=== PATIENT | male | born 1950 | race Caucasian/White ===

== ENCOUNTER 2019-11-02 09:52 | Outpatient (CLI) | payer MEDICARE, SELFPAY ==
[2019-11-02 10:30] LABS: Basophils Absolute Auto 0.1 K/mm3 (0.0-0.1); Basophils Percent Auto 0.7 % (0.2-1.2); Eosinophils Absolute Auto 0.1 K/mm3 (0-0.3); Eosinophils Percent Auto 1.2 % (0-4.4); Hematocrit 37.8 % (42.0-52.0); Hemoglobin 13.4 g/dL (14.0-18.0); Immature Granulocyte Absolute 0.02 K/mm3 (0.00-0.031); Immature Granulocyte Percent A 0.3 % (0-0.5); Lymphocytes Absolute Auto 1.08 K/mm3 (0.9-3.2); Lymphocytes Percent Auto 14.7 % (18.3-44.2); Mean Corpuscular HGB Conc 35.4 g/dl (32-36); Mean Corpuscular Hemoglobin 33.1 pg (26-34); Mean Corpuscular Volume 93.3 fl (80-100); Mean Platelet Volume 10.2 fl (7.4-10.4); Monocytes Absolute Auto 0.7 K/mm3 (0.1-0.6); Monocytes Percent Auto 9.4 % (2.6-8.5); Neutrophils Absolute Auto 5.4 K/mm3 (1.3-6.7); Neutrophils Percent Auto 73.7 % (45.5-73.1); Platelet Count Result 184 k/mm3 (150-375); Red Blood Count 4.05 M/mm3 (4.6-6.20); Red Cell Distribution Width 14.5 % (11.5-14.5); White Blood Count 7.3 K/mm3 (4.5-10.0)
[2019-11-02 10:43] LABS: Alanine Aminotransferase 17 U/L (4-50); Albumin Level 4.3 g/dL (3.5-5.1); Alkaline Phosphatase 56 U/L (38-126); Aspartate Amino Transferase 24 U/L (17-59); Bilirubin,Total 0.7 mg/dL (0.2-1.3); Blood Urea Nitrogen 29 mg/dL (9-20); Calcium 9.1 mg/dL (8.4-10.2); Carbon Dioxide 34 mmol/L (22-30); Chloride 95 mmol/L (98-107); Cholesterol 120 mg/dL (0-200); Estimated Glomerular Filt Rate 46; Glucose 103 mg/dL (75-110); HDL Direct 56 mg/dL; Potassium 3.3 mmol/L (3.4-5.0); Sodium 138 mmol/L (137-145); Triglycerides 89 mg/dL (<150)
[2019-11-02 10:54] LABS: LDL Cholesterol Direct 52 mg/dL
[2019-11-02 11:12] LABS: Prostate Specific Antigen 1.3 ng/mL (< OR = 4.0)
== END 2019-11-02 09:53 | disposition home or self-care (01) ==
PROVIDERS: PCP Internal Medicine; Visit Provider Internal Medicine
DX: E78.2 Mixed hyperlipidemia (principal); I50.9 Heart failure, unspecified; Z79.899 Other long term (current) drug therapy; Z12.5 Encounter for screening for malignant neoplasm of prostate
CPT/HCPCS: 36415; 80053; 80061; 84153; 84443; 85025; G0103

== ENCOUNTER 2020-03-04 01:58 | Outpatient (CLI) | payer MEDICARE, SELFPAY ==
[2020-03-04 18:09] LABS: SARS-CoV-2 RNA PCR Negative
== END 2020-03-04 01:59 | disposition home or self-care (01) ==
LOC: ANHCOVIDDT 01:59
PROVIDERS: PCP Internal Medicine; Visit Provider Internal Medicine Gastroenterology
DX: Z01.818 Encounter for other preprocedural examination (principal); Z11.59 Encounter for screening for other viral diseases
CPT/HCPCS: 87635; C9803; U0003

== ENCOUNTER 2020-03-06 03:07 | Day surgery (SDC) | payer MEDICARE, SELFPAY ==
[2020-02-28 13:50] VITALS: BMI 41.7
[2020-03-06 10:45] VITALS: BP 144/89; PULSE 78; RESP 20; TEMP 36.3; O2SAT 97; BMI 41.0
[2020-03-06] MEDS: LACTATED RINGERS 1,000 ML 150 ML IV CONT (10:55)
[2020-03-06] MEDS: GENTAMICIN 80MG/SOD CHL 50 ML 80 MG/50 ML BAG 100 MG IVPB (10:56)
[2020-03-06] MEDS: AMPICILLIN 2 GM/NS 100 ML 2 GM/100 ML BAG IVPB (11:25)
--- NOTE | 2020-03-06 11:42 | PM.IMHP ---
H&P: HPI History of Present Illness Chief complaint: fecal abnormality, positive cologuard Narrative: This very pleasant gentleman is seen in consultation request of the primary physician. Reason for visit colonoscopy. Impression: Positive stool base DNA testing. Recommendation: Colonoscopy. History: This very pleasant gentleman is negative GI review systems. He is here for colonoscopy. He has a positive stool DNA test. Physical examination: General: very pleasant patient in no acute distress. HEENT: Head was normocephalic sclerae is clear mouth without masses neck was supple. Heart: Rate rhythm regular without S3 or S4. Lungs: CTA. Abdomen: Soft with no guarding or rigidity. Bowel sounds were active. Neurologic: Cranial nerves 2 through 12 intact. No focal defects. No clonus. Musculoskeletal system: Revealed no joint tenderness or swelling no muscle atrophy. Extremities: Reveal no significant edema. Skin: Warm and dry with normal turgor. Mental status: intact. Patient is alert and oriented. Review of Systems Review of Systems: All systems reviewed & are unremarkable except as noted in HPI and below PMFSH Past Medical History Medical History (Updated 03/06/20 @ 11:41 by Jeremias Moreland DO) Benign essential hypertension Body mass index (BMI) 45.0-49.9, adult CHF (congestive heart failure) CKD (chronic kidney disease) Diastolic dysfunction Gout Hyperlipidemia Hypothyroidism (acquired) Lymphedema Mild cognitive disorder Obesity YESY on CPAP Vitamin B12 deficiency Vitamin D deficiency Surgical History Surgical History (Updated 03/06/20 @ 11:42 by Jeremias Moreland DO) H/O aortic valve replacement H/O total hip arthroplasty History of tonsillectomy and adenoidectomy Social History Social History Smoking status: Former smoker Second hand tobacco smoke exposure: No Alcohol intake: current Meds Home Medications and Allergies Home Medications Medication Instructions Recorded Confirmed Type amlodipine 5 mg tablet 5 mg PO DAILY 06/30/19 02/28/20 History aspirin 81 mg tablet,delayed 81 mg PO DAILY 06/30/19 02/28/20 History release carvedilol 25 mg tablet 25 mg PO Q12H 06/30/19 02/28/20 History cyanocobalamin (vitamin B-12) 1,000 mcg SUB-Q .every two weeks 06/30/19 02/28/20 History 1,000 mcg/mL injection solution ml ergocalciferol (vitamin D2) 62.5 2,500 unit PO DAILY 06/30/19 02/28/20 History mcg (2,500 unit) capsule hydralazine 100 mg tablet 100 mg PO TID 06/30/19 02/28/20 History lisinopril 40 mg tablet 40 mg PO DAILY 06/30/19 02/28/20 History omega-3 fatty acids 1,000 mg 1,000 mg PO BID 06/30/19 02/28/20 History capsule potassium chloride 20 mEq 20 meq PO BID #180 tablet 08/09/19 02/28/20 Rx tablet,extended release(part/cryst) rosuvastatin 5 mg tablet 5 mg PO DAILY #90 tablet 08/09/19 02/28/20 Rx apixaban 5 mg tablet 5 mg PO BID #60 tablet 12/06/19 02/28/20 Rx metolazone 2.5 mg tablet 2.5 mg PO DAILY #30 tablet 01/11/20 02/28/20 Rx colchicine 0.6 mg capsule 0.6 mg PO .COMPLEX PRN #90 cap 01/13/20 02/28/20 Rx furosemide [Lasix] 80 mg PO PRN 02/28/20 02/28/20 History donepezil 10 mg BYMOUTH DAILY 03/06/20 03/06/20 History levothyroxine 100 mcg tablet 100 mcg PO DAILY #90 tablet 03/06/20 03/06/20 Rx Allergies Allergy/AdvReac Type Severity Reaction Status Date / Time No Known Allergies Allergy Verified 03/06/20 10:40 Vital Signs Vital Signs - 24 hr 03/06/20 10:45 Temperature 36.3 C L Pulse Rate 78 Respiratory Rate 20 Blood Pressure 144/89 H Pulse Oximetry 97
--- NOTE | 2020-03-06 11:54 | WPDANESEPPF ---
Anes - Initial Pre Proc Eval Procedure: Operation Date: 03/06/20 12:00 Proposed Procedures p Colonoscopy - Jeremias Moreland DO Date/Time: 03/06/20 11:54 Surgeon: Jeremias Moreland DO Pre Op Diagnosis: fecal abnormality, positive cologuard Patient Data Age: 69 Gender: M Height: 5 ft 10 in Weight: 129.6 kg Last Vital Signs Temp 97.3 F L 03/06/20 10:45 Pulse 78 03/06/20 10:45 Resp 20 03/06/20 10:45 BP 144/89 H 03/06/20 10:45 Pulse Ox 97 03/06/20 10:45 Allergies Allergy/AdvReac Type Severity Reaction Status Date / Time No Known Allergies Allergy Verified 03/06/20 10:40 Home Medications Medication Instructions Recorded Confirmed Type amlodipine 5 mg tablet 5 mg PO DAILY 06/30/19 02/28/20 History aspirin 81 mg tablet,delayed 81 mg PO DAILY 06/30/19 02/28/20 History release carvedilol 25 mg tablet 25 mg PO Q12H 06/30/19 02/28/20 History cyanocobalamin (vitamin B-12) 1,000 mcg SUB-Q .every two weeks 06/30/19 02/28/20 History 1,000 mcg/mL injection solution ml ergocalciferol (vitamin D2) 62.5 2,500 unit PO DAILY 06/30/19 02/28/20 History mcg (2,500 unit) capsule hydralazine 100 mg tablet 100 mg PO TID 06/30/19 02/28/20 History lisinopril 40 mg tablet 40 mg PO DAILY 06/30/19 02/28/20 History omega-3 fatty acids 1,000 mg 1,000 mg PO BID 06/30/19 02/28/20 History capsule potassium chloride 20 mEq 20 meq PO BID #180 tablet 08/09/19 02/28/20 Rx tablet,extended release(part/cryst) rosuvastatin 5 mg tablet 5 mg PO DAILY #90 tablet 08/09/19 02/28/20 Rx apixaban 5 mg tablet 5 mg PO BID #60 tablet 12/06/19 02/28/20 Rx metolazone 2.5 mg tablet 2.5 mg PO DAILY #30 tablet 01/11/20 02/28/20 Rx colchicine 0.6 mg capsule 0.6 mg PO .COMPLEX PRN #90 cap 01/13/20 02/28/20 Rx furosemide [Lasix] 80 mg PO PRN 02/28/20 02/28/20 History donepezil 10 mg BYMOUTH DAILY 03/06/20 03/06/20 History levothyroxine 100 mcg tablet 100 mcg PO DAILY #90 tablet 03/06/20 03/06/20 Rx Patient hx anesthesia problems: none Family hx anesthesia problems: none [facility] Past Medical History Medical History (Updated 03/06/20 @ 11:41 by Jeremias Moreland DO) Benign essential hypertension Body mass index (BMI) 45.0-49.9, adult CHF (congestive heart failure) CKD (chronic kidney disease) Diastolic dysfunction Gout Hyperlipidemia Hypothyroidism (acquired) Lymphedema Mild cognitive disorder Obesity YESY on CPAP Vitamin B12 deficiency Vitamin D deficiency Surgical History Surgical History (Updated 03/06/20 @ 11:42 by Jeremias Moreland DO) H/O aortic valve replacement H/O total hip arthroplasty History of tonsillectomy and adenoidectomy Social History Social History Smoking status: Former smoker Second hand tobacco smoke exposure: No Alcohol intake: current Anes - Eval Final PreProcedure Day of Procedure 03/06/20 11:54 Patient weight: morbidly obese Heart: regular rate and rhythm Lungs: clear to auscultation Airway: Mallampati scale class III Neurological: alert and oriented Last oral intake: >/= 8 hours ASA classification: IV Emergent: no Anesthetic plan: proceed Anesthesia type and monitoring: general GIVS and standard monitoring Informed Consent: The patient's anesthetic plan and its attendant risks and benefits were discussed with the patient/family/POA. Questions were solicited and answers provided to the satisfaction of the patient/family/POA.
[2020-03-06 13:13] VITALS: BP 116/73; PULSE 89; RESP 20; O2SAT 97
[2020-03-06 13:23] VITALS: BP 114/71; PULSE 103; RESP 20; O2SAT 97
[2020-03-06 13:33] VITALS: BP 123/81; PULSE 75; RESP 20; O2SAT 97
[2020-03-06 13:43] VITALS: BP 127/77; PULSE 75; RESP 20; O2SAT 97
== END 2020-03-06 13:50 | disposition home or self-care (01) ==
PROVIDERS: PCP Internal Medicine; Visit Provider Internal Medicine Gastroenterology
PROC: 0DJD8ZZ Inspection of Lower Intestinal Tract, Via Natural or Artificial Opening Endoscopic (ICD-10-PCS; CPT 45378; principal; 2020-03-06 12:00)
DX: Z12.11 Encounter for screening for malignant neoplasm of colon (principal); R19.5 Other fecal abnormalities; D12.3 Benign neoplasm of transverse colon; K57.30 Diverticulosis of large intestine without perforation or abscess without bleeding; K64.8 Other hemorrhoids; E78.5 Hyperlipidemia, unspecified; I13.0 Hypertensive heart and chronic kidney disease with heart failure and stage 1 through stage 4 chronic kidney disease, or unspecified chronic kidney disease; N18.9 Chronic kidney disease, unspecified; I50.30 Unspecified diastolic (congestive) heart failure; G47.33 Obstructive sleep apnea (adult) (pediatric); E03.9 Hypothyroidism, unspecified; M10.9 Gout, unspecified; E55.9 Vitamin D deficiency, unspecified; E53.8 Deficiency of other specified B group vitamins; E66.01 Morbid (severe) obesity due to excess calories; Z68.41 Body mass index [BMI] 40.0-44.9, adult; Z95.4 Presence of other heart-valve replacement; Z87.891 Personal history of nicotine dependence; Z79.82 Long term (current) use of aspirin; Z79.01 Long term (current) use of anticoagulants
CPT/HCPCS: 45385; 88305; J0290; J1580; J2704; J7120

== ENCOUNTER 2020-03-24 09:03 | Outpatient (CLI) | payer MEDICARE, SELFPAY ==
[2020-03-24 09:22] LABS: Basophils Absolute Auto 0.1 K/mm3 (0.0-0.1); Basophils Percent Auto 0.7 % (0.2-1.2); Eosinophils Absolute Auto 0.1 K/mm3 (0-0.3); Eosinophils Percent Auto 1.6 % (0-4.4); Hematocrit 39.8 % (42.0-52.0); Hemoglobin 13.8 g/dL (14.0-18.0); Immature Granulocyte Absolute 0.03 K/mm3 (0.00-0.031); Immature Granulocyte Percent A 0.4 % (0-0.5); Lymphocytes Absolute Auto 0.91 K/mm3 (0.9-3.2); Lymphocytes Percent Auto 11.9 % (18.3-44.2); Mean Corpuscular HGB Conc 34.7 g/dl (32-36); Mean Corpuscular Hemoglobin 33.7 pg (26-34); Mean Corpuscular Volume 97.1 fl (80-100); Mean Platelet Volume 9.9 fl (7.4-10.4); Monocytes Absolute Auto 0.7 K/mm3 (0.1-0.6); Monocytes Percent Auto 9.3 % (2.6-8.5); Neutrophils Absolute Auto 5.8 K/mm3 (1.3-6.7); Neutrophils Percent Auto 76.1 % (45.5-73.1); Platelet Count Result 155 k/mm3 (150-375); Red Cell Distribution Width 14.1 % (11.5-14.5); White Blood Count 7.6 K/mm3 (4.5-10.0)
[2020-03-24 09:33] LABS: Hemoglobin A1C 4.8 % (<5.7)
[2020-03-24 09:37] LABS: Alanine Aminotransferase 17 U/L (4-50); Albumin Level 4.3 g/dL (3.5-5.1); Alkaline Phosphatase 55 U/L (38-126); Anion Gap 13.1 mmol/L (7-16); Aspartate Amino Transferase 22 U/L (17-59); Bilirubin,Total 0.8 mg/dL (0.2-1.3); Blood Urea Nitrogen 13 mg/dL (9-20); Carbon Dioxide 27 mmol/L (22-30); Chloride 103 mmol/L (98-107); Cholesterol 119 mg/dL (0-200); Estimated Glomerular Filt Rate > 60; Glucose 109 mg/dL (75-110); HDL Direct 60 mg/dL; Potassium 4.1 mmol/L (3.4-5.0); Sodium 139 mmol/L (137-145); Triglycerides 64 mg/dL (<150)
[2020-03-24 09:48] LABS: LDL Cholesterol Direct 48 mg/dL
== END 2020-03-24 09:04 | disposition home or self-care (01) ==
PROVIDERS: PCP Internal Medicine; Visit Provider Internal Medicine
DX: E78.2 Mixed hyperlipidemia (principal); Z79.899 Other long term (current) drug therapy; I10 Essential (primary) hypertension
CPT/HCPCS: 36415; 80048; 80061; 80076; 83036; 85025

== ENCOUNTER 2020-07-25 10:42 | Outpatient (CLI) | payer MEDICARE, SELFPAY ==
[2020-07-25 11:04] LABS: Basophils Absolute Auto 0.1 K/mm3 (0.0-0.1); Basophils Percent Auto 0.8 % (0.2-1.2); Eosinophils Absolute Auto 0.1 K/mm3 (0-0.3); Eosinophils Percent Auto 1.5 % (0-4.4); Hematocrit 42.4 % (42.0-52.0); Hemoglobin 14.7 g/dL (14.0-18.0); Immature Granulocyte Absolute 0.01 K/mm3 (0.00-0.031); Immature Granulocyte Percent A 0.2 % (0-0.5); Lymphocytes Absolute Auto 1.08 K/mm3 (0.9-3.2); Lymphocytes Percent Auto 17.9 % (18.3-44.2); Mean Corpuscular HGB Conc 34.7 g/dl (32-36); Mean Corpuscular Hemoglobin 32.2 pg (26-34); Monocytes Absolute Auto 0.7 K/mm3 (0.1-0.6); Monocytes Percent Auto 11.4 % (2.6-8.5); Neutrophils Absolute Auto 4.1 K/mm3 (1.3-6.7); Neutrophils Percent Auto 68.2 % (45.5-73.1); Platelet Count Result 188 k/mm3 (150-375); Red Blood Count 4.56 M/mm3 (4.6-6.20); Red Cell Distribution Width 13.9 % (11.5-14.5)
[2020-07-25 11:07] LABS: Add Urine Microscopic? NO; Appearance Urine Clear (Clear); Bilirubin Urine Negative (Negative); Blood Urine Negative (Negative); Color Urine Yellow (Yellow); Glucose Urine UA Negative (Negative); Ketones Urine Negative (Negative); Leukocyte Esterase Ur Negative LEU/UL (NEGATIVE); Nitrate Urine Negative (Negative); Protein Urine Negative (Negative); Specific Grav Ur 1.016 (1.001-1.035); Urobilinogen Urine Negative mg/dL (<2.0)
[2020-07-25 11:12] LABS: Hemoglobin A1C 4.8 % (<5.7)
[2020-07-25 11:15] LABS: Alanine Aminotransferase 19 U/L (4-50); Albumin Level 4.2 g/dL (3.5-5.1); Alkaline Phosphatase 57 U/L (38-126); Anion Gap 8 mmol/L (8-16); Aspartate Amino Transferase 25 U/L (17-59); Bilirubin,Total 0.9 mg/dL (0.2-1.3); Blood Urea Nitrogen 12 mg/dL (9-20); Calcium 9.1 mg/dL (8.4-10.2); Carbon Dioxide 29 mmol/L (22-30); Chloride 101 mmol/L (98-107); Cholesterol 125 mg/dL (0-200); Estimated Glomerular Filt Rate > 60; Glucose 97 mg/dL (75-110); HDL Direct 58 mg/dL; Sodium 138 mmol/L (137-145); Triglycerides 83 mg/dL (<150)
[2020-07-25 11:26] LABS: LDL Cholesterol Direct 53 mg/dL
[2020-07-25 11:45] LABS: Thyroid Stimulating Hormone 0.859 uIU/mL (0.465-4.680)
[2020-07-25 11:56] LABS: Free T4 Free Thyroxine 1.48 ng/mL (0.78-2.19)
== END 2020-07-25 10:43 | disposition home or self-care (01) ==
LOC: ANHLAB 10:44
PROVIDERS: PCP Internal Medicine; Visit Provider Internal Medicine
DX: E78.2 Mixed hyperlipidemia (principal); I10 Essential (primary) hypertension; E03.9 Hypothyroidism, unspecified; Z51.81 Encounter for therapeutic drug level monitoring; Z79.899 Other long term (current) drug therapy
CPT/HCPCS: 36415; 80053; 80061; 81003; 83036; 84439; 84443; 85025

== ENCOUNTER 2020-10-13 09:22 | Outpatient (CLI) | payer MEDICARE, SELFPAY ==
[2020-10-13 09:45] LABS: Basophils Absolute Auto 0.1 K/mm3 (0.0-0.1); Basophils Percent Auto 0.9 % (0.2-1.2); Eosinophils Absolute Auto 0.1 K/mm3 (0-0.3); Eosinophils Percent Auto 1.9 % (0-4.4); Hematocrit 42.8 % (42.0-52.0); Immature Granulocyte Absolute 0.02 K/mm3 (0.00-0.031); Immature Granulocyte Percent A 0.3 % (0-0.5); Lymphocytes Absolute Auto 0.96 K/mm3 (0.9-3.2); Lymphocytes Percent Auto 13.9 % (18.3-44.2); Mean Corpuscular Hemoglobin 32.5 pg (26-34); Mean Corpuscular Volume 92.8 fl (80-100); Monocytes Absolute Auto 0.8 K/mm3 (0.1-0.6); Monocytes Percent Auto 11.3 % (2.6-8.5); Neutrophils Percent Auto 71.7 % (45.5-73.1); Platelet Count Result 204 k/mm3 (150-375); Red Blood Count 4.61 M/mm3 (4.6-6.20); Red Cell Distribution Width 13.2 % (11.5-14.5); White Blood Count 6.9 K/mm3 (4.5-10.0)
[2020-10-13 09:56] LABS: Anion Gap 8 mmol/L (8-16); Blood Urea Nitrogen 11 mg/dL (9-20); Calcium 9.1 mg/dL (8.4-10.2); Carbon Dioxide 32 mmol/L (22-30); Chloride 99 mmol/L (98-107); Estimated Glomerular Filt Rate > 60; Glucose 118 mg/dL (75-110); Potassium 3.9 mmol/L (3.4-5.0); Sodium 139 mmol/L (137-145)
== END 2020-10-13 09:23 | disposition home or self-care (01) ==
PROVIDERS: PCP Internal Medicine; Visit Provider Internal Medicine Cardiovascular Disease
DX: I50.32 Chronic diastolic (congestive) heart failure (principal)
CPT/HCPCS: 36415; 80048; 85025

== ENCOUNTER 2020-11-28 09:54 | Outpatient (CLI) | payer MEDICARE, SELFPAY ==
[2020-11-28 11:05] LABS: Free T4 Free Thyroxine 1.29 ng/mL (0.78-2.19)
[2020-11-28 11:58] LABS: Alanine Aminotransferase 18 U/L (4-50); Albumin Level 4.3 g/dL (3.5-5.1); Alkaline Phosphatase 67 U/L (38-126); Anion Gap 6 mmol/L (8-16); Aspartate Amino Transferase 25 U/L (17-59); Bilirubin,Total 0.7 mg/dL (0.2-1.3); Blood Urea Nitrogen 13 mg/dL (9-20); Calcium 8.8 mg/dL (8.4-10.2); Carbon Dioxide 27 mmol/L (22-30); Chloride 107 mmol/L (98-107); Cholesterol 117 mg/dL (0-200); Estimated Glomerular Filt Rate > 60; Glucose 141 mg/dL (75-110); HDL Direct 59 mg/dL; Potassium 3.8 mmol/L (3.4-5.0); Sodium 140 mmol/L (137-145); Triglycerides 80 mg/dL (<150); Uric Acid 5.9 mg/dL (3.5-8.5)
[2020-11-28 12:09] LABS: LDL Cholesterol Direct 46 mg/dL
[2020-11-28 12:33] LABS: Prostate Specific Antigen 0.8 ng/mL (< OR = 4.0); Thyroid Stimulating Hormone 0.845 uIU/mL (0.465-4.680)
[2020-11-28 13:08] LABS: Folic Acid 5.9 ng/mL (2.76->20)
[2020-12-01 22:51] LABS: Vitamin D 1,25 (OH)2 Total 35 pg/mL (18-72); Vitamin D2 1,25 (OH)2 18 pg/mL; Vitamin D3 1,25 (OH)2 17 pg/mL
== END 2020-11-28 09:55 | disposition home or self-care (01) ==
LOC: ANHLAB 09:59
PROVIDERS: PCP Internal Medicine; Visit Provider Internal Medicine
DX: Z12.5 Encounter for screening for malignant neoplasm of prostate (principal); Z51.81 Encounter for therapeutic drug level monitoring; Z79.899 Other long term (current) drug therapy; E78.2 Mixed hyperlipidemia; E03.9 Hypothyroidism, unspecified; E53.8 Deficiency of other specified B group vitamins; E55.9 Vitamin D deficiency, unspecified; M10.9 Gout, unspecified; I10 Essential (primary) hypertension
CPT/HCPCS: 36415; 80053; 80061; 82607; 82652; 82746; 83036; 84153; 84439; 84443; 84550; G0103

== ENCOUNTER 2021-04-05 07:03 | Outpatient (CLI) | payer MEDICARE, SELFPAY ==
[2021-04-05 08:08] LABS: Anion Gap 7 mmol/L (8-16); Blood Urea Nitrogen 9 mg/dL (9-20); Calcium 8.9 mg/dL (8.4-10.2); Carbon Dioxide 27 mmol/L (22-30); Chloride 100 mmol/L (98-107); Cholesterol 124 mg/dL (0-200); Estimated Glomerular Filt Rate > 60; Glucose 95 mg/dL (65-110); HDL Direct 56 mg/dL; Potassium 3.5 mmol/L (3.4-5.0); Sodium 134 mmol/L (137-145); Triglycerides 64 mg/dL (<150)
[2021-04-05 08:38] LABS: LDL Cholesterol Direct 55 mg/dL
[2021-04-05 08:44] LABS: Hemoglobin A1C 5.1 % (<5.7)
[2021-04-05 09:02] LABS: Free T4 Free Thyroxine 1.35 ng/mL (0.78-2.19)
== END 2021-04-05 07:04 | disposition home or self-care (01) ==
LOC: ANHLAB 07:05
PROVIDERS: PCP Internal Medicine; Visit Provider Internal Medicine
DX: E03.9 Hypothyroidism, unspecified (principal); Z51.81 Encounter for therapeutic drug level monitoring; Z79.899 Other long term (current) drug therapy; E78.2 Mixed hyperlipidemia; I10 Essential (primary) hypertension
CPT/HCPCS: 36415; 80048; 80061; 83036; 84439; 84443

== ENCOUNTER 2021-08-23 09:43 | Outpatient (CLI) | payer MEDICARE, SELFPAY ==
[2021-08-23 10:49] LABS: Alanine Aminotransferase 20 U/L (4-50); Albumin Level 4.4 g/dL (3.5-5.1); Alkaline Phosphatase 62 U/L (38-126); Anion Gap 10 mmol/L (8-16); Aspartate Amino Transferase 27 U/L (17-59); Basophils Absolute Auto 0.1 K/mm3 (0.0-0.1); Basophils Percent Auto 0.8 % (0.2-1.2); Bilirubin,Total 0.8 mg/dL (0.2-1.3); Blood Urea Nitrogen 22 mg/dL (9-20); Carbon Dioxide 28 mmol/L (22-30); Chloride 100 mmol/L (98-107); Cholesterol 139 mg/dL (0-200); Eosinophils Absolute Auto 0.2 K/mm3 (0-0.3); Eosinophils Percent Auto 2.2 % (0-4.4); Estimated Glomerular Filt Rate > 60; Glucose 113 mg/dL (65-110); HDL Direct 62 mg/dL; Hematocrit 39.8 % (42.0-52.0); Immature Granulocyte Absolute 0.02 K/mm3 (0.00-0.031); Immature Granulocyte Percent A 0.3 % (0-0.5); Lymphocytes Absolute Auto 1.18 K/mm3 (0.9-3.2); Lymphocytes Percent Auto 16.1 % (18.3-44.2); Mean Corpuscular HGB Conc 35.2 g/dl (32-36); Mean Corpuscular Hemoglobin 32.9 pg (26-34); Mean Corpuscular Volume 93.6 fl (80-100); Mean Platelet Volume 10.7 fl (7.4-10.4); Monocytes Absolute Auto 0.7 K/mm3 (0.1-0.6); Monocytes Percent Auto 9.3 % (2.6-8.5); Neutrophils Absolute Auto 5.2 K/mm3 (1.3-6.7); Neutrophils Percent Auto 71.3 % (45.5-73.1); Platelet Count Result 190 k/mm3 (150-375); Potassium 3.2 mmol/L (3.4-5.0); Red Blood Count 4.25 M/mm3 (4.6-6.20); Red Cell Distribution Width 13.9 % (11.5-14.5); Sodium 138 mmol/L (137-145); Triglycerides 55 mg/dL (<150); White Blood Count 7.3 K/mm3 (4.5-10.0)
[2021-08-23 10:50] LABS: Hemoglobin A1C 5.2 % (<5.7)
[2021-08-23 10:59] LABS: LDL Cholesterol Direct 59 mg/dL
[2021-08-23 11:54] LABS: Folic Acid 6.3 ng/mL (2.76->20)
== END 2021-08-23 09:44 | disposition home or self-care (01) ==
LOC: ANHLAB 09:47
PROVIDERS: PCP Internal Medicine; Visit Provider Internal Medicine
DX: Z51.81 Encounter for therapeutic drug level monitoring (principal); Z79.899 Other long term (current) drug therapy; E78.2 Mixed hyperlipidemia; E53.8 Deficiency of other specified B group vitamins
CPT/HCPCS: 36415; 80053; 80061; 82607; 82746; 83036; 85025

== ENCOUNTER 2022-01-16 07:21 | Outpatient (CLI) | payer MEDICARE, SELFPAY ==
[2022-01-16 07:44] LABS: Basophils Absolute Auto 0.1 K/mm3 (0.0-0.1); Eosinophils Absolute Auto 0.1 K/mm3 (0-0.3); Eosinophils Percent Auto 2.1 % (0-4.4); Hematocrit 43.3 % (42.0-52.0); Hemoglobin 15.1 g/dL (14.0-18.0); Immature Granulocyte Absolute 0.02 K/mm3 (0.00-0.031); Immature Granulocyte Percent A 0.3 % (0-0.5); Lymphocytes Absolute Auto 1.16 K/mm3 (0.9-3.2); Lymphocytes Percent Auto 17.1 % (18.3-44.2); Mean Corpuscular HGB Conc 34.9 g/dl (32-36); Mean Corpuscular Hemoglobin 32.5 pg (26-34); Mean Corpuscular Volume 93.3 fl (80-100); Mean Platelet Volume 10.4 fl (7.4-10.4); Monocytes Absolute Auto 0.7 K/mm3 (0.1-0.6); Monocytes Percent Auto 9.7 % (2.6-8.5); Neutrophils Absolute Auto 4.8 K/mm3 (1.3-6.7); Neutrophils Percent Auto 69.8 % (45.5-73.1); Platelet Count Result 169 k/mm3 (150-375); Red Blood Count 4.64 M/mm3 (4.6-6.20); Red Cell Distribution Width 13.7 % (11.5-14.5); White Blood Count 6.8 K/mm3 (4.5-10.0)
[2022-01-16 07:45] LABS: Appearance Urine Clear (Clear); Bilirubin Urine Negative (Negative); Blood Urine Negative (Negative); Color Urine Yellow (Yellow); Glucose Urine UA Negative (Negative); Ketones Urine Negative (Negative); Leukocyte Esterase Ur Negative LEU/UL (Negative); Nitrate Urine Negative (Negative); Protein Urine Trace mg/dL (Negative); Urobilinogen Urine 0.2 mg/dL (<2.0)
[2022-01-16 08:01] LABS: RBC Urine 0-2 /hpf (0-2); Squamous Epithelial Cell Urine Rare /hpf (Few); WBC Urine 0-3 /hpf
[2022-01-16 08:04] LABS: Add Urine Microscopic? YES
[2022-01-16 08:06] LABS: Hemoglobin A1C 5.1 % (<5.7)
[2022-01-16 08:10] LABS: Alanine Aminotransferase 20 U/L (6-50); Albumin Level 4.5 g/dL (3.5-5.1); Alkaline Phosphatase 64 U/L (38-126); Anion Gap 4 mmol/L (8-16); Aspartate Amino Transferase 27 U/L (17-59); Blood Urea Nitrogen 13 mg/dL (9-20); Calcium 8.8 mg/dL (8.4-10.2); Carbon Dioxide 32 mmol/L (22-30); Chloride 99 mmol/L (98-107); Cholesterol 122 mg/dL (0-200); Estimated Glomerular Filt Rate > 60; Glucose 100 mg/dL (65-110); HDL Direct 60 mg/dL; Potassium 3.9 mmol/L (3.4-5.0); Sodium 135 mmol/L (137-145); Triglycerides 49 mg/dL (<150)
[2022-01-16 08:22] LABS: LDL Cholesterol Direct 41 mg/dL
[2022-01-16 08:34] LABS: Prostate Specific Antigen 0.7 ng/mL (< OR = 4.0)
[2022-01-16 08:39] LABS: Free T4 Free Thyroxine 1.37 ng/mL (0.78-2.19)
[2022-01-16 09:10] LABS: Folic Acid 6.8 ng/mL (2.76->20)
== END 2022-01-16 07:22 | disposition home or self-care (01) ==
PROVIDERS: PCP Internal Medicine; Visit Provider Internal Medicine
DX: I10 Essential (primary) hypertension (principal); E03.9 Hypothyroidism, unspecified; Z79.899 Other long term (current) drug therapy; E78.2 Mixed hyperlipidemia; E53.8 Deficiency of other specified B group vitamins; Z12.5 Encounter for screening for malignant neoplasm of prostate
CPT/HCPCS: 36415; 80053; 80061; 81001; 82607; 82746; 83036; 84153; 84439; 84443; 85025; G0103

== ENCOUNTER 2022-06-03 09:25 | Outpatient (CLI) | payer MEDICARE, SELFPAY ==
[2022-06-03 09:52] LABS: Alanine Aminotransferase 19 U/L (6-50); Albumin Level 4.3 g/dL (3.5-5.1); Alkaline Phosphatase 75 U/L (38-126); Anion Gap 8 mmol/L (8-16); Aspartate Amino Transferase 21 U/L (17-59); Blood Urea Nitrogen 9 mg/dL (9-20); Calcium 8.9 mg/dL (8.4-10.2); Carbon Dioxide 29 mmol/L (22-30); Chloride 100 mmol/L (98-107); Cholesterol 137 mg/dL (0-200); Estimated Glomerular Filt Rate > 60; Glucose 122 mg/dL (65-110); HDL Direct 46 mg/dL; Potassium 3.8 mmol/L (3.4-5.0); Sodium 137 mmol/L (137-145); Triglycerides 102 mg/dL (<150)
[2022-06-03 10:04] LABS: LDL Cholesterol Direct 75 mg/dL
[2022-06-03 10:50] LABS: Hemoglobin A1C 5.1 % (<5.7)
[2022-06-03 11:16] LABS: Free T4 Free Thyroxine 1.65 ng/mL (0.78-2.19); Vitamin D 25 Hydroxy 15.4 ng/mL
== END 2022-06-03 09:26 | disposition home or self-care (01) ==
PROVIDERS: PCP Internal Medicine; Visit Provider Internal Medicine
DX: Z13.1 Encounter for screening for diabetes mellitus (principal); Z79.899 Other long term (current) drug therapy; E55.9 Vitamin D deficiency, unspecified; E03.9 Hypothyroidism, unspecified; E78.2 Mixed hyperlipidemia; I10 Essential (primary) hypertension
CPT/HCPCS: 36415; 80053; 80061; 82306; 83036; 84439; 84443

== ENCOUNTER 2022-10-21 08:57 | Outpatient (CLI) | payer MEDICARE, SELFPAY ==
[2022-10-21 09:24] LABS: Basophils Percent Auto 0.7 % (0.2-1.2); Eosinophils Absolute Auto 0.1 K/mm3 (0-0.3); Eosinophils Percent Auto 1.6 % (0-4.4); Hematocrit 41.7 % (42.0-52.0); Hemoglobin 14.6 g/dL (14.0-18.0); Immature Granulocyte Absolute 0.02 K/mm3 (0.00-0.031); Immature Granulocyte Percent A 0.3 % (0-0.5); Lymphocytes Absolute Auto 1.06 K/mm3 (0.9-3.2); Lymphocytes Percent Auto 18.3 % (18.3-44.2); Mean Corpuscular Hemoglobin 31.9 pg (26-34); Mean Corpuscular Volume 91.2 fl (80-100); Mean Platelet Volume 9.9 fl (7.4-10.4); Monocytes Absolute Auto 0.7 K/mm3 (0.1-0.6); Monocytes Percent Auto 11.2 % (2.6-8.5); Neutrophils Absolute Auto 3.9 K/mm3 (1.3-6.7); Neutrophils Percent Auto 67.9 % (45.5-73.1); Platelet Count Result 178 k/mm3 (150-375); Red Blood Count 4.57 M/mm3 (4.6-6.20); Red Cell Distribution Width 13.2 % (11.5-14.5); White Blood Count 5.8 K/mm3 (4.5-10.0)
[2022-10-21 09:34] LABS: Alanine Aminotransferase 22 U/L (6-50); Albumin Level 4.1 g/dL (3.5-5.1); Alkaline Phosphatase 62 U/L (38-126); Anion Gap 5 mmol/L (8-16); Aspartate Amino Transferase 27 U/L (17-59); Bilirubin,Total 0.9 mg/dL (0.2-1.3); Blood Urea Nitrogen 13 mg/dL (9-20); Calcium 8.9 mg/dL (8.4-10.2); Carbon Dioxide 28 mmol/L (22-30); Chloride 99 mmol/L (98-107); Cholesterol 116 mg/dL (0-200); Estimated Glomerular Filt Rate > 60; Glucose 122 mg/dL (65-110); HDL Direct 54 mg/dL; Potassium 3.9 mmol/L (3.4-5.0); Sodium 132 mmol/L (137-145); Triglycerides 83 mg/dL (<150)
[2022-10-21 09:45] LABS: LDL Cholesterol Direct 43 mg/dL
[2022-10-21 09:56] LABS: Free T4 Free Thyroxine 1.59 ng/mL (0.78-2.19); Vitamin D 25 Hydroxy 48.8 ng/mL
[2022-10-21 16:43] LABS: Hemoglobin A1C 5.2 % (<5.7)
[2022-10-21 16:55] LABS: Prostate Specific Antigen 0.8 ng/mL (< OR = 4.0)
== END 2022-10-21 08:58 | disposition home or self-care (01) ==
LOC: ANHLAB 08:59
PROVIDERS: PCP Internal Medicine; Visit Provider Internal Medicine
DX: I10 Essential (primary) hypertension (principal); E03.9 Hypothyroidism, unspecified; Z79.899 Other long term (current) drug therapy; R73.09 Other abnormal glucose; E78.2 Mixed hyperlipidemia; Z12.5 Encounter for screening for malignant neoplasm of prostate; E55.9 Vitamin D deficiency, unspecified
CPT/HCPCS: 36415; 80053; 80061; 82306; 83036; 84153; 84439; 84443; 85025; G0103

== ENCOUNTER 2023-03-11 10:16 | Outpatient (CLI) | payer MEDICARE, SELFPAY ==
[2023-03-11 11:47] LABS: Hemoglobin A1C 5.2 % (<5.7)
[2023-03-11 12:53] LABS: Free T4 Free Thyroxine 1.64 ng/mL (0.78-2.19)
[2023-03-11 13:06] LABS: Alanine Aminotransferase 23 U/L (6-50); Albumin Level 4.3 g/dL (3.5-5.1); Alkaline Phosphatase 62 U/L (38-126); Anion Gap 6 mmol/L (8-16); Aspartate Amino Transferase 25 U/L (17-59); Bilirubin,Total 0.8 mg/dL (0.2-1.3); Blood Urea Nitrogen 13 mg/dL (9-20); Calcium 8.9 mg/dL (8.4-10.2); Carbon Dioxide 29 mmol/L (22-30); Chloride 104 mmol/L (98-107); Cholesterol 111 mg/dL (0-200); Estimated Glomerular Filt Rate > 60; Glucose 94 mg/dL (65-110); HDL Direct 52 mg/dL; Potassium 3.8 mmol/L (3.4-5.0); Sodium 139 mmol/L (137-145); Triglycerides 53 mg/dL (<150)
[2023-03-11 13:17] LABS: LDL Cholesterol Direct 43 mg/dL
[2023-03-11 13:39] LABS: Appearance Urine Cloudy (Clear); Bacteria Urine 4+ /hpf; Bilirubin Urine Negative (Negative); Blood Urine Negative (Negative); Color Urine Yellow (Yellow); Glucose Urine UA Negative (Negative); Ketones Urine Negative (Negative); Leukocyte Esterase Ur 3+ LEU/UL (Negative); Nitrate Urine Negative (Negative); Non Pathogenic Casts 0-2; Protein Urine 1+ mg/dL (Negative); Specific Grav Ur 1.015 (1.001-1.035); Squamous Epithelial Cell Urine None seen /hpf (Few); WBC Urine >100 /hpf
[2023-03-11 13:51] LABS: Add Urine Microscopic? YES
== END 2023-03-11 10:17 | disposition home or self-care (01) ==
LOC: ANHLAB 10:17
PROVIDERS: PCP Internal Medicine; Visit Provider Internal Medicine
DX: I10 Essential (primary) hypertension (principal); E03.9 Hypothyroidism, unspecified; Z79.899 Other long term (current) drug therapy; Z13.1 Encounter for screening for diabetes mellitus; E78.2 Mixed hyperlipidemia
CPT/HCPCS: 36415; 80053; 80061; 81001; 83036; 84439; 84443; 87077; 87086; 87186

== ENCOUNTER 2023-05-29 00:43 | Day surgery (SDC) | payer MEDICARE, SELFPAY ==
[2023-05-22 15:31] VITALS: BMI 41.6
--- NOTE | 2023-05-28 14:57 | PM.HPGS ---
History of Present Illness History of Present Illness Consent: Risks, benefits, and alternatives have been discussed and questions answered. Patient agrees to proceed with procedure. Chief complaint: hx colon polyps Narrative: Eddie Reyes is a 72 year old male Referred for colon cancer screening. He had 2 adenomatous polyps removed 3 years ago. Review of Systems Review of Systems: All systems reviewed & are unremarkable except as noted in HPI and below PMFSH Past Medical History Medical History ASHD (arteriosclerotic heart disease) Benign essential hypertension Body mass index (BMI) 40.0-44.9, adult Body mass index (BMI) 45.0-49.9, adult CHF (congestive heart failure) CKD (chronic kidney disease) Colon cancer screening Diastolic dysfunction Encounter for Medicare annual wellness exam Encounter for routine adult health examination without abnormal findings Encounter for special screening examination for neoplasm of prostate Gout Hearing loss Hx of colonic polyps Hyperlipidemia Hypothyroidism (acquired) LBBB (left bundle branch block) Lymphedema Mild cognitive disorder Obesity YESY on CPAP Vitamin B12 deficiency Vitamin D deficiency Surgical History Surgical History H/O aortic valve replacement H/O total hip arthroplasty History of tonsillectomy and adenoidectomy Family History Family History Father Family history of lung disease Grandparent Family history of lung disease Social History Social History Smoking status: Former smoker Tobacco type: cigarettes Second hand tobacco smoke exposure: No Alcohol intake: current Drinks per week: 14 Alcohol use details: wine Substance use type: does not use Lack of Transportation: No Lack of Food: Never True Current Housing: I Have Housing Concerned About Future Housing: No Difficulty Paying Gas/Electric Bills: No Difficulty Paying for Meds: No Currently Unemployed: No Education: Master's Degree or Higher Difficulty w/ Childcare or Family Care: No Living arrangements: with family Occupation/Education: retired Gender identity (if verbalized by the patient): Male Spiritual care concerns: No Meds Home Medications and Allergies Home Medications Medication Instructions Recorded Confirmed Type amlodipine 5 mg tablet 5 mg PO DAILY 06/30/19 05/29/23 History aspirin 81 mg tablet,delayed 81 mg PO DAILY 06/30/19 05/29/23 History release (Adult Low Dose Aspirin) hydralazine 100 mg tablet 100 mg PO TID 06/30/19 05/29/23 History omega-3 fatty acids 1,000 mg 1,000 mg PO DAILY 06/30/19 05/29/23 History capsule (Fish Oil Concentrate) furosemide 80 mg tablet (Lasix) 80 mg PO DAILY PRN Edema 02/28/20 05/29/23 History guanfacine 2 mg tablet 3 mg PO DAILY 03/24/20 05/29/23 History syringe with needle 3 mL 25 gauge #6 ea 11/30/20 05/29/23 Rx x 1 (BD Luer-Fermin Syringe) colchicine (gout) 0.6 mg tablet 0.6 mg PO DAILY PRN gout flare up 03/12/21 05/29/23 Rx #90 tabs cholecalciferol (vitamin D3) 50 50 mcg PO DAILY 06/04/22 05/29/23 History mcg (2,000 unit) capsule apixaban 5 mg tablet (Eliquis) 5 mg PO BID 05/22/23 05/29/23 History carvedilol 25 mg tablet 25 mg PO BID 05/22/23 05/29/23 History donepezil 10 mg tablet 10 mg PO DAILY 05/22/23 05/29/23 History levothyroxine 100 mcg tablet 100 mcg PO DAILY 05/22/23 05/29/23 History lisinopril 40 mg tablet 40 mg PO DAILY 05/22/23 05/29/23 History potassium chloride 10 mEq 10 meq PO DAILY 05/22/23 05/29/23 History tablet,extended release rosuvastatin 5 mg tablet 5 mg PO DAILY 05/22/23 05/29/23 History Allergies Allergy/AdvReac Type Severity Reaction Status Date / Time No Known Allergies Allergy Verified 05/29/23 08:44 Exam Resp: Auscultation: clear to
[2023-05-29 08:46] VITALS: BP 130/90; PULSE 66; RESP 22; TEMP 36.1; O2SAT 98; BMI 37.0
[2023-05-29] MEDS: GENTAMICIN 80MG/SOD CHL 50 ML 80 MG/50 ML BAG 100 MG IVPB (08:58)
[2023-05-29] MEDS: AMPICILLIN 2 GM/NS 100 ML 2 GM/100 ML BAG IVPB (09:25)
[2023-05-29] MEDS: LACTATED RINGERS 1,000 ML 150 ML IV CONT (09:53)
--- NOTE | 2023-05-29 09:59 | WPDANESEPPF ---
Anes - Initial Pre Proc Eval Procedure: Operation Date: 05/29/23 10:00 Proposed Procedures p Colonoscopy - Nando Allen MD Date/Time: 05/29/23 09:59 Surgeon: Nando Allen MD Pre Op Diagnosis: hx colon polyps Patient Data Age: 72 Gender: M Height: 1.78 m Weight: 117.3 kg Last Vital Signs Temp 97.0 F L 05/29/23 08:46 Pulse 66 05/29/23 08:46 Resp 22 H 05/29/23 08:46 BP 130/90 05/29/23 08:46 Pulse Ox 98 05/29/23 08:46 O2 Del Method Room Air 05/29/23 08:46 Allergies Allergy/AdvReac Type Severity Reaction Status Date / Time No Known Allergies Allergy Verified 05/29/23 08:44 Home Medications Medication Instructions Recorded Confirmed Type amlodipine 5 mg tablet 5 mg PO DAILY 06/30/19 05/29/23 History aspirin 81 mg tablet,delayed 81 mg PO DAILY 06/30/19 05/29/23 History release (Adult Low Dose Aspirin) hydralazine 100 mg tablet 100 mg PO TID 06/30/19 05/29/23 History omega-3 fatty acids 1,000 mg 1,000 mg PO DAILY 06/30/19 05/29/23 History capsule (Fish Oil Concentrate) furosemide 80 mg tablet (Lasix) 80 mg PO DAILY PRN Edema 02/28/20 05/29/23 History guanfacine 2 mg tablet 3 mg PO DAILY 03/24/20 05/29/23 History syringe with needle 3 mL 25 gauge #6 ea 11/30/20 05/29/23 Rx x 1 (BD Luer-Fermin Syringe) colchicine (gout) 0.6 mg tablet 0.6 mg PO DAILY PRN gout flare up 03/12/21 05/29/23 Rx #90 tabs cholecalciferol (vitamin D3) 50 50 mcg PO DAILY 06/04/22 05/29/23 History mcg (2,000 unit) capsule apixaban 5 mg tablet (Eliquis) 5 mg PO BID 05/22/23 05/29/23 History carvedilol 25 mg tablet 25 mg PO BID 05/22/23 05/29/23 History donepezil 10 mg tablet 10 mg PO DAILY 05/22/23 05/29/23 History levothyroxine 100 mcg tablet 100 mcg PO DAILY 05/22/23 05/29/23 History lisinopril 40 mg tablet 40 mg PO DAILY 05/22/23 05/29/23 History potassium chloride 10 mEq 10 meq PO DAILY 05/22/23 05/29/23 History tablet,extended release rosuvastatin 5 mg tablet 5 mg PO DAILY 05/22/23 05/29/23 History Patient hx anesthesia problems: none Family hx anesthesia problems: none Results Review: All pre-operative results and documents have been reviewed as part of the pre-operative evaluation. [facility] Past Medical History Medical History ASHD (arteriosclerotic heart disease) Benign essential hypertension Body mass index (BMI) 40.0-44.9, adult Body mass index (BMI) 45.0-49.9, adult CHF (congestive heart failure) CKD (chronic kidney disease) Colon cancer screening Diastolic dysfunction Encounter for Medicare annual wellness exam Encounter for routine adult health examination without abnormal findings Encounter for special screening examination for neoplasm of prostate Gout Hearing loss Hx of colonic polyps Hyperlipidemia Hypothyroidism (acquired) LBBB (left bundle branch block) Lymphedema Mild cognitive disorder Obesity YESY on CPAP Vitamin B12 deficiency Vitamin D deficiency Surgical History Surgical History H/O aortic valve replacement H/O total hip arthroplasty History of tonsillectomy and adenoidectomy Family History Family History Father Family history of lung disease Grandparent Family history of lung disease Social History Social History Smoking status: Former smoker Tobacco type: cigarettes Second hand tobacco smoke exposure: No Alcohol intake: current Drinks per week: 14 Alcohol use details: wine Substance use type: does not use Lack of Transportation: No Lack of Food: Never True Current Housing: I Have Housing Concerned About Future Housing: No Difficulty Paying Gas/Electric Bills: No Difficulty Paying for Meds: No Currently Unemployed: No Education: Master's Degree or Higher Difficulty w/ Childcare or Family Care: No
[2023-05-29 10:15] VITALS: BP 123/67; PULSE 76; RESP 23; O2SAT 95
[2023-05-29 10:25] VITALS: BP 140/91; PULSE 66; RESP 22; O2SAT 97
[2023-05-29 10:35] VITALS: BP 147/92; PULSE 65; RESP 21; O2SAT 97
== END 2023-05-29 10:47 | disposition home or self-care (01) ==
PROVIDERS: PCP Internal Medicine; Visit Provider Internal Medicine Gastroenterology
PROC: 0DJD8ZZ Inspection of Lower Intestinal Tract, Via Natural or Artificial Opening Endoscopic (ICD-10-PCS; CPT 45378; principal; 2023-05-29 10:00)
DX: Z12.11 Encounter for screening for malignant neoplasm of colon (principal); K64.8 Other hemorrhoids; K57.30 Diverticulosis of large intestine without perforation or abscess without bleeding; Z86.010 Personal history of colon polyps; I13.0 Hypertensive heart and chronic kidney disease with heart failure and stage 1 through stage 4 chronic kidney disease, or unspecified chronic kidney disease; I50.9 Heart failure, unspecified; N18.9 Chronic kidney disease, unspecified; I25.10 Atherosclerotic heart disease of native coronary artery without angina pectoris; M10.9 Gout, unspecified; E78.5 Hyperlipidemia, unspecified; E03.9 Hypothyroidism, unspecified; I44.7 Left bundle-branch block, unspecified; E55.9 Vitamin D deficiency, unspecified; G47.33 Obstructive sleep apnea (adult) (pediatric); E53.8 Deficiency of other specified B group vitamins; Z79.82 Long term (current) use of aspirin; Z79.01 Long term (current) use of anticoagulants; Z95.4 Presence of other heart-valve replacement; E66.9 Obesity, unspecified; Z68.37 Body mass index [BMI] 37.0-37.9, adult; Z87.891 Personal history of nicotine dependence
CPT/HCPCS: G0105; J0290; J1580; J2704; J7120

== ENCOUNTER 2023-07-28 07:29 | Outpatient (CLI) | payer MEDICARE, SELFPAY ==
[2023-07-28 08:06] LABS: Basophils Absolute Auto 0.1 K/mm3 (0.0-0.1); Basophils Percent Auto 0.7 % (0.2-1.2); Eosinophils Absolute Auto 0.2 K/mm3 (0-0.3); Eosinophils Percent Auto 2.4 % (0-4.4); Hematocrit 39.4 % (42.0-52.0); Hemoglobin 13.7 g/dL (14.0-18.0); Immature Granulocyte Absolute 0.02 K/mm3 (0.00-0.031); Immature Granulocyte Percent A 0.3 % (0-0.5); Lymphocytes Percent Auto 12.5 % (18.3-44.2); Mean Corpuscular HGB Conc 34.8 g/dl (32-36); Mean Corpuscular Hemoglobin 32.2 pg (26-34); Mean Corpuscular Volume 92.5 fl (80-100); Mean Platelet Volume 10.7 fl (7.4-10.4); Monocytes Absolute Auto 0.8 K/mm3 (0.1-0.6); Monocytes Percent Auto 10.6 % (2.6-8.5); Neutrophils Absolute Auto 5.3 K/mm3 (1.3-6.7); Neutrophils Percent Auto 73.5 % (45.5-73.1); Platelet Count Result 177 k/mm3 (150-375); Red Blood Count 4.26 M/mm3 (4.6-6.20); Red Cell Distribution Width 13.2 % (11.5-14.5); White Blood Count 7.2 K/mm3 (4.5-10.0)
[2023-07-28 08:49] LABS: Hemoglobin A1C 4.9 % (<5.7)
[2023-07-28 09:29] LABS: Free T4 Free Thyroxine 1.55 ng/mL (0.78-2.19); Vitamin D 25 Hydroxy 20.8 ng/mL
[2023-07-28 11:26] LABS: Alanine Aminotransferase 21 U/L (6-50); Albumin Level 4.1 g/dL (3.5-5.1); Alkaline Phosphatase 65 U/L (38-126); Anion Gap 8 mmol/L (8-16); Aspartate Amino Transferase 25 U/L (17-59); Bilirubin,Total 1.1 mg/dL (0.2-1.3); Blood Urea Nitrogen 12 mg/dL (9-20); Calcium 9.1 mg/dL (8.4-10.2); Carbon Dioxide 30 mmol/L (22-30); Chloride 101 mmol/L (98-107); Cholesterol 111 mg/dL (0-200); Estimated Glomerular Filt Rate > 60; Glucose 97 mg/dL (65-110); HDL Direct 48 mg/dL; Potassium 3.8 mmol/L (3.4-5.0); Sodium 139 mmol/L (137-145); Triglycerides 59 mg/dL (<150)
[2023-07-28 11:37] LABS: LDL Cholesterol Direct 54 mg/dL
== END 2023-07-28 07:30 | disposition home or self-care (01) ==
LOC: ANHLAB 07:31
PROVIDERS: PCP Internal Medicine; Visit Provider Internal Medicine
DX: E03.9 Hypothyroidism, unspecified (principal); I10 Essential (primary) hypertension; Z13.1 Encounter for screening for diabetes mellitus; Z79.899 Other long term (current) drug therapy; E55.9 Vitamin D deficiency, unspecified; E78.2 Mixed hyperlipidemia
CPT/HCPCS: 36415; 80053; 80061; 82306; 83036; 84439; 84443; 85025

== ENCOUNTER 2023-07-29 10:26 | Outpatient (CLI) | payer MEDICARE, SELFPAY ==
--- NOTE | ~2023-07-29 | XR_ITS ---
XR chest 2V 07/29/2023 10:59 Indication: Cough and wheezing Procedure: 2 view chest Comparison: 09/29/2018 Findings: Status post median sternotomy for CABG. Moderate cardiomegaly. No focal air space disease, pulmonary edema, pleural effusion or suspected pneumothorax. Impression: 1: Moderate cardiomegaly. Reviewed, dictated and finalized at location L. AL HERDER Impression: 1: Moderate cardiomegaly.
[2023-07-29 11:00] LABS: Basophils Percent Auto 0.2 % (0.2-1.2); Eosinophils Percent Auto 0.1 % (0-4.4); Hematocrit 39.4 % (42.0-52.0); Hemoglobin 13.2 g/dL (14.0-18.0); Immature Granulocyte Absolute 0.05 K/mm3 (0.00-0.031); Immature Granulocyte Percent A 0.5 % (0-0.5); Lymphocytes Percent Auto 3.1 % (18.3-44.2); Mean Corpuscular HGB Conc 33.5 g/dl (32-36); Mean Corpuscular Hemoglobin 31.5 pg (26-34); Mean Platelet Volume 10.6 fl (7.4-10.4); Monocytes Absolute Auto 0.8 K/mm3 (0.1-0.6); Monocytes Percent Auto 8.4 % (2.6-8.5); Neutrophils Absolute Auto 8.5 K/mm3 (1.3-6.7); Neutrophils Percent Auto 87.7 % (45.5-73.1); Platelet Count Result 156 k/mm3 (150-375); Red Blood Count 4.19 M/mm3 (4.6-6.20); Red Cell Distribution Width 13.3 % (11.5-14.5); White Blood Count 9.7 K/mm3 (4.5-10.0)
[2023-07-29 11:53] LABS: Influenza A QL RT-PCR Negative (Negative); Influenza B QL RT-PCR Negative (Negative); SARS-CoV-2 RNA PCR Positive (Negative)
== END 2023-07-29 10:27 | disposition home or self-care (01) ==
LOC: ANHLAB 10:28
PROVIDERS: PCP Internal Medicine; Visit Provider Internal Medicine
DX: I51.7 Cardiomegaly (principal); J06.9 Acute upper respiratory infection, unspecified; J34.89 Other specified disorders of nose and nasal sinuses; Z20.822 Contact with and (suspected) exposure to COVID-19
CPT/HCPCS: 36415; 71046; 85025; 87636

== ENCOUNTER 2023-09-11 11:16 | Outpatient (CLI) | payer MEDICARE, SELFPAY ==
--- NOTE | ~2023-09-11 | XR_ITS ---
XR chest 2V DATE: 09/11/2023 12:00 INDICATION: Cough TECHNIQUE: PA and lateral views COMPARISON: 12/2022 PA and lateral views FINDINGS: Status post sternotomy and cardiac valve replacement. There is cardiomegaly. Chronic mild left diaphragm elevation. No pulmonary infiltrate or consolidation, pleural effusion or pulmonary vascular congestion or pneumo thorax is detected. IMPRESSION: Status post sternotomy and cardiac valve replacement Cardiomegaly No active pulmonary disease Reviewed, dictated and finalized at location L. 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
--- NOTE | ~2023-09-11 | XR_ITS ---
XR sinus min 3V DATE: 09/11/2023 12:00 INDICATION: Sinus congestion TECHNIQUE: 5 views including [place], [place], lateral, submental vertical views COMPARISON: None FINDINGS: The nasal septum appears to be deviated leftward superiorly. The nasal turbinates appear so mewhat prominent. The paranasal sinuses are normally developed and aerated. The mastoid air cells lik ewise appear normally developed and aerated. IMPRESSION: Nasal turbinates appear somewhat prominent but no radiographic evidence of sinusitis Reviewed, dictated and finalized at location L. PULLER IMPRESSION: Nasal turbinates appear somewhat prominent but no radiographic evid ence of sinusitis
[2023-09-11 11:35] LABS: Basophils Percent Auto 0.4 % (0.2-1.2); Eosinophils Absolute Auto 0.1 K/mm3 (0-0.3); Eosinophils Percent Auto 0.8 % (0-4.4); Hematocrit 41.4 % (42.0-52.0); Hemoglobin 13.6 g/dL (14.0-18.0); Immature Granulocyte Absolute 0.04 K/mm3 (0.00-0.031); Immature Granulocyte Percent A 0.4 % (0-0.5); Lymphocytes Absolute Auto 0.53 K/mm3 (0.9-3.2); Lymphocytes Percent Auto 5.2 % (18.3-44.2); Mean Corpuscular HGB Conc 32.9 g/dl (32-36); Mean Corpuscular Hemoglobin 30.6 pg (26-34); Mean Corpuscular Volume 93.2 fl (80-100); Mean Platelet Volume 9.8 fl (7.4-10.4); Monocytes Absolute Auto 1.2 K/mm3 (0.1-0.6); Neutrophils Absolute Auto 8.3 K/mm3 (1.3-6.7); Neutrophils Percent Auto 81.2 % (45.5-73.1); Platelet Count Result 193 k/mm3 (150-375); Red Blood Count 4.44 M/mm3 (4.6-6.20); Red Cell Distribution Width 13.3 % (11.5-14.5); White Blood Count 10.2 K/mm3 (4.5-10.0)
[2023-09-11 11:45] LABS: Alanine Aminotransferase 24 U/L (6-50); Albumin Level 3.9 g/dL (3.5-5.1); Alkaline Phosphatase 76 U/L (38-126); Anion Gap 6 mmol/L (8-16); Aspartate Amino Transferase 31 U/L (17-59); Blood Urea Nitrogen 14 mg/dL (9-20); Calcium 8.7 mg/dL (8.4-10.2); Carbon Dioxide 30 mmol/L (22-30); Chloride 101 mmol/L (98-107); Estimated Glomerular Filt Rate > 60; Glucose 104 mg/dL (65-110); Potassium 4.2 mmol/L (3.4-5.0); Sodium 137 mmol/L (137-145)
== END 2023-09-11 11:17 | disposition home or self-care (01) ==
LOC: ANHLAB 11:22
PROVIDERS: PCP Internal Medicine; Visit Provider Internal Medicine
DX: R05.9 Cough, unspecified (principal); R06.09 Other forms of dyspnea; R53.83 Other fatigue; I51.7 Cardiomegaly; J34.89 Other specified disorders of nose and nasal sinuses; Z86.16 Personal history of COVID-19
CPT/HCPCS: 36415; 70220; 71046; 80053; 85025

== ENCOUNTER 2023-09-13 10:01 | Emergency (ER) | payer MEDICARE, SELFPAY ==
[2023-09-13] VITALS (22 sets, daily range): BP systolic 119–149; BP diastolic 74–99; PULSE 75–93; RESP 14–24; TEMP 36.4; O2SAT 95–99
--- NOTE | ~2023-09-13 | CT_ITS ---
EXAMINATION: CT brain wo con DATE: 09/13/2023 10:17 INDICATION: Cerebrovascular accident TECHNIQUE: Computed tomography (CT) of the head was performed without intravenous contrast. The mA wa s adjusted according to patient size. Iterative reconstruction technique was employed. Exam dose: 60 5.33 mGy-cm total exam DLP. COMPARISON: None FINDINGS: There is an approximately 1.5 cm hematoma in the left occipital lobe with mild surrounding edema. There is subarachnoid acute bleed high over the left parietal convexity and possible 5.5 mm high left parietal hematoma. 5 mm right frontal hematoma or hyperdense mass. (Series 2 image 35). 5 mm focal hyperdense lesion or hematoma, lateral right frontal lobe (series 2 image 27). Small subarachnoid bleed or hematoma high over the right frontal convexity (series 2 image 47). No midline shift or mass effect. Right vertebral artery calcification. Bilateral carotid siphon internal carotid artery calcifications . There is nonspecific diminished attenuation of the cerebral white matter, likely due to chronic small vessel ischemic changes. Normal ventricular size. No orbital mass lesion. Small mucus retention cyst along the medial wall of the right maxillary sinus, minimal posterior left maxillary sinus soft tissue thickening, mild soft tissue thickening the ethmoid air cells. The paran rosa sinuses and mastoid air cells are otherwise unremarkable. IMPRESSION: Bilateral hematomas and/or hyperdense masses, recent subarachnoid bleed high over the le ft convexity Cerebral atherosclerosis and chronic small vessel ischemic changes of the cerebral white matter Dr. Jarvis gave the results by telephone to emergency room physician Dr. Culelar on 09/13/2023 1030 hours Reviewed, dictated and finalized at [facility]. Reviewed, dictated and finalized at location A. ULE FILLER IMPRESSION: Bilateral hematomas and/or hyperdense masses, recent subarachnoid bleed high over the left convexity Cerebral atherosclerosis and chronic small vessel ischemic changes of the cereb ral white matter Dr. Jarvis gave the results by telephone to emergency room physician Dr. Cuellar on 09/13/2023 1030 hours
--- NOTE | ~2023-09-13 | CT_ITS ---
EXAMINATION: CTA brain carotid DATE: 09/13/2023 10:22 INDICATION: CVA? TECHNIQUE: Computed tomographic angiography (CTA) of the head and neck was performed with 100 mL Omni paque-350 intravenous contrast. Automated exposure control and iterative reconstruction technique wer e employed. The dose-length product was 1190.70 mGy-cm. Maximum intensity projection and volume rend ered 3D-reconstructions were created by the technologist on a separate workstation. COMPARISON: CT brain, same date. FINDINGS: CTA HEAD: No large vessel occlusion, aneurysm, high flow vascular malformation, nidus or active extravasation. Atherosclerotic calcifications in the cavernous carotids, without significant stenosis. The intradura l right vertebral artery appears to terminate in a cerebellar artery, with the more distal portions b eing absent or hypoplastic, a normal variant. Redemonstration of a left convexity subarachnoid hemorrhage, left occipital lobe hematoma, and subcen timeter right frontal hematomas or hyperdense masses. CTA NECK: Aortic arch and proximal great vessels: Mild calcification at the arch. Normal arch anatomy. Right common carotid, carotid bifurcation, and internal carotid artery: Mild calcified plaque at the bifurcation.There is 0% stenosis of the proximal right internal carotid artery relative to normal dis albaro artery lumen diameter (NASCET criteria). Left common carotid, carotid bifurcation, and internal carotid artery: Mild calcified plaque.There is 0% stenosis of the proximal left internal carotid artery relative to normal distal artery lumen diam eter (NASCET criteria). Vertebral arteries: No significant plaque or stenosis. Left vertebral artery is dominant. Other findings: Ethmoid and left maxillary mucosal thickening. Retention cysts/polyps in the right mi ddle ethmoid and right maxillary sinuses. Degenerative changes in the cervical spine. IMPRESSION: No large vessel occlusion, high-grade intracranial stenosis, or aneurysm. No carotid or vertebral artery occlusion dissection or significant stenosis. Reviewed, dictated and finalized at location K. CIATE PRODUCT MANAGER
--- NOTE | ~2023-09-13 | XR_ITS ---
XR chest 1V portable DATE: 09/13/2023 10:34 INDICATION: Right-sided weakness. CVA. Cough. TECHNIQUE: Portable upright AP chest on 09/13/2023 at 1031 hours COMPARISON: 118 PA and lateral chest FINDINGS: Status post sternotomy and cardiac valve replacement. There is pulmonary vascular congestion and redistribution. No pulmonary consolidation or significant pleural fluid collection or pneumothorax is noted. IMPRESSION: Cardiomegaly, pulmonary vascular congestion/redistribution, consistent with mild congesti ve change Reviewed, dictated and finalized at location A. OVEMENT LEADER IMPRESSION: Cardiomegaly, pulmonary vascular congestion/redistribution, consist ent with mild congestive change
--- NOTE | 2023-09-13 10:02 | ECG_ITS ---
Measurements Intervals [place] Rate: 93 P: IN: 0 QRS: 4 QRSD: 170 T: 143 QT: 416 QTc: 520 Interpretive Statements ATRIAL FIBRILLATION LEFT BUNDLE BRANCH BLOCK BASELINE ARTIFACT- II, III, AVR, AVL, AVF, V1-V6 ABNORMAL ECG COMPARED TO ECG 04/19/2019 07:58:25 NO SIGNIFICANT CHANGES Electronically Signed On 09-13-2023 15:13:57 ASSISTANT CHILD CARE TEACHER by Aston Erwin D.O.
[2023-09-13 10:08] LABS: Glucose Point of Care 135 mg/dl (65-105)
--- NOTE | 2023-09-13 10:19 | ED.NEUROSD ---
HPI - Neuro Symptoms/Deficit General Chief Complaint: Suspected CVA Stated Complaint: ?cva Time Seen by Provider: 09/13/23 10:15 Source: patient Mode of arrival: ambulatory Limitations: no limitations Related Data Home Medications Medication Instructions Recorded Confirmed amlodipine 5 mg tablet 5 mg PO DAILY 06/30/19 09/11/23 aspirin 81 mg tablet,delayed 81 mg PO DAILY 06/30/19 09/11/23 release (Adult Low Dose Aspirin) hydralazine 100 mg tablet 100 mg PO TID 06/30/19 09/11/23 omega-3 fatty acids 1,000 mg 1,000 mg PO DAILY 06/30/19 09/11/23 capsule (Fish Oil Concentrate) furosemide 80 mg tablet (Lasix) 80 mg PO DAILY PRN Edema 02/28/20 09/11/23 guanfacine 2 mg tablet 3 mg PO DAILY 03/24/20 09/11/23 cholecalciferol (vitamin D3) 50 50 mcg PO DAILY 06/04/22 09/11/23 mcg (2,000 unit) capsule rosuvastatin 5 mg tablet 5 mg PO .qod 07/29/23 09/11/23 Allergies Allergy/AdvReac Type Severity Reaction Status Date / Time No Known Allergies Allergy Verified 09/11/23 10:38 [facility] Past Medical History Medical History (Updated 09/11/23 @ 10:48 by Lilia Juan CMA) ASHD (arteriosclerotic heart disease) Benign essential hypertension BMI 39.0-39.9,adult Body mass index (BMI) 40.0-44.9, adult Body mass index (BMI) 45.0-49.9, adult CHF (congestive heart failure) CKD (chronic kidney disease) Colon cancer screening Cough Diastolic dysfunction GAMINO (dyspnea on exertion) Encounter for Medicare annual wellness exam Encounter for routine adult health examination with abnormal findings Encounter for routine adult health examination without abnormal findings Encounter for special screening examination for neoplasm of prostate Gout Hearing loss Hx of colonic polyps Hyperlipidemia Hypothyroidism (acquired) LBBB (left bundle branch block) Lymphedema Mild cognitive disorder Obesity YESY on CPAP Personal history of COVID-19 URI (upper respiratory infection) Vitamin B12 deficiency Vitamin D deficiency Surgical History Surgical History H/O aortic valve replacement H/O total hip arthroplasty History of tonsillectomy and adenoidectomy Family History Family History Father Family history of lung disease Grandparent Family history of lung disease Social History Social History Smoking status: Former smoker Tobacco type: cigarettes Second hand tobacco smoke exposure: No Alcohol intake: current Drinks per week: 14 Alcohol use details: wine Substance use type: does not use Lack of Transportation: No Lack of Food: Never True Current Housing: I Have Housing Concerned About Future Housing: No Difficulty Paying Gas/Electric Bills: No Difficulty Paying for Meds: No Currently Unemployed: No Education: Master's Degree or Higher Difficulty w/ Childcare or Family Care: No Living arrangements: with family Occupation/Education: retired Gender identity (if verbalized by the patient): Male Spiritual care concerns: No MDM - Neuro Symptoms/Deficit Lab Data Labs: Lab Results 09/13/23 Range/Units 10:05 POC Capillary Glucose 135 H (65-105) mg/dl Discharge Plan Discharge Prescriptions: No Action hydralazine 100 mg tablet 100 mg PO TID amlodipine 5 mg tablet 5 mg PO DAILY aspirin [Adult Low Dose Aspirin] 81 mg tablet,delayed release (DR/EC) 81 mg PO DAILY omega-3 fatty acids [Fish Oil Concentrate] 1,000 mg capsule 1,000 mg PO DAILY cholecalciferol (vitamin D3) 50 mcg (2,000 unit) capsule 50 mcg PO DAILY albuterol sulfate 2.5 mg /3 mL (0.083 %) solution for nebulization 2.5 mg inhalation Q4-6H PRN (Reason: shortness of breath or wheezing) Qty: 90 1RF guanfacine 2 mg tablet 3 mg PO DAILY rosuvastatin 5 mg tablet 5 mg PO .qod Rx Instructions: TAKE
--- NOTE | 2023-09-13 10:26 | ED.NEUROSD ---
HPI - Neuro Symptoms/Deficit General Chief Complaint: Suspected CVA Stated Complaint: ?cva Time Seen by Provider: 09/13/23 10:15 Source: patient Mode of arrival: ambulatory Limitations: no limitations History of Present Illness HPI Narrative: Per , noticed facial droop yesterday morning, and seemed more out of it/not like himself today. Called their PCP who told them to come in. He denies any complaints other than the right-sided facial droop. Related Data Home Medications Medication Instructions Recorded Confirmed amlodipine 5 mg tablet 5 mg PO DAILY 06/30/19 09/11/23 aspirin 81 mg tablet,delayed 81 mg PO DAILY 06/30/19 09/11/23 release (Adult Low Dose Aspirin) hydralazine 100 mg tablet 100 mg PO TID 06/30/19 09/11/23 omega-3 fatty acids 1,000 mg 1,000 mg PO DAILY 06/30/19 09/11/23 capsule (Fish Oil Concentrate) furosemide 80 mg tablet (Lasix) 80 mg PO DAILY PRN Edema 02/28/20 09/11/23 guanfacine 2 mg tablet 3 mg PO DAILY 03/24/20 09/11/23 cholecalciferol (vitamin D3) 50 50 mcg PO DAILY 06/04/22 09/11/23 mcg (2,000 unit) capsule rosuvastatin 5 mg tablet 5 mg PO .qod 07/29/23 09/11/23 Allergies Allergy/AdvReac Type Severity Reaction Status Date / Time No Known Allergies Allergy Verified 09/13/23 10:52 Review of Systems Review of Systems: CONST: No fever. HEENT: No sore throat C/V: No chest pain RESP: No n/v : No dysuria. M/S: No joint pain. SKIN: No rash. NEURO: R sided facial droop PSYCH: [No depression] [facility] Past Medical History Medical History (Updated 09/13/23 @ 14:38 by Paulina Hutton MD) ASHD (arteriosclerotic heart disease) Benign essential hypertension BMI 39.0-39.9,adult Body mass index (BMI) 40.0-44.9, adult Body mass index (BMI) 45.0-49.9, adult CHF (congestive heart failure) CKD (chronic kidney disease) Colon cancer screening Cough Diastolic dysfunction GAMION (dyspnea on exertion) Encounter for Medicare annual wellness exam Encounter for routine adult health examination with abnormal findings Encounter for routine adult health examination without abnormal findings Encounter for special screening examination for neoplasm of prostate Gout Hearing loss Hx of colonic polyps Hyperlipidemia Hypothyroidism (acquired) LBBB (left bundle branch block) Lymphedema Mild cognitive disorder Obesity YESY on CPAP Personal history of COVID-19 URI (upper respiratory infection) Vitamin B12 deficiency Vitamin D deficiency Surgical History Surgical History H/O aortic valve replacement H/O total hip arthroplasty History of tonsillectomy and adenoidectomy Family History Family History Father Family history of lung disease Grandparent Family history of lung disease Social History Social History Smoking status: Former smoker Tobacco type: cigarettes Second hand tobacco smoke exposure: No Alcohol intake: current Drinks per week: 14 Alcohol use details: wine Substance use type: does not use Lack of Transportation: No Lack of Food: Never True Current Housing: I Have Housing Concerned About Future Housing: No Difficulty Paying Gas/Electric Bills: No Difficulty Paying for Meds: No Currently Unemployed: No Education: Master's Degree or Higher Difficulty w/ Childcare or Family Care: No Living arrangements: with family Occupation/Education: retired Gender identity (if verbalized by the patient): Male Spiritual care concerns: No Exam Narrative: EXAMINATION OF ORGAN SYSTEMS/BODY AREAS: Constitutional: Vital signs per nursing GENERAL:[No acute distress, non-toxic appearing.] HEAD: Normal with no signs of head trauma. EYES: EOMI, conjunctiva normal, PERRL ENT: Hearing grossly intact LUNGS: Nonlabored breathing. HEART: [Regular rate and rhythm] ABD: [Soft], [nontender t
[2023-09-13 10:34] LABS: Estimated Glomerular Filt Rate > 60
[2023-09-13 10:37] LABS: Basophils Percent Auto 0.2 % (0.2-1.2); Hematocrit 41.8 % (42.0-52.0); Hemoglobin 13.6 g/dL (14.0-18.0); Immature Granulocyte Absolute 0.08 K/mm3 (0.00-0.031); Immature Granulocyte Percent A 0.7 % (0-0.5); Lymphocytes Percent Auto 6.2 % (18.3-44.2); Mean Corpuscular HGB Conc 32.5 g/dl (32-36); Mean Corpuscular Hemoglobin 30.3 pg (26-34); Mean Corpuscular Volume 93.1 fl (80-100); Mean Platelet Volume 10.1 fl (7.4-10.4); Monocytes Absolute Auto 1.1 K/mm3 (0.1-0.6); Monocytes Percent Auto 9.7 % (2.6-8.5); Neutrophils Absolute Auto 9.3 K/mm3 (1.3-6.7); Neutrophils Percent Auto 83.2 % (45.5-73.1); Platelet Count Result 240 k/mm3 (150-375); Red Blood Count 4.49 M/mm3 (4.6-6.20); Red Cell Distribution Width 13.2 % (11.5-14.5); White Blood Count 11.2 K/mm3 (4.5-10.0)
[2023-09-13 10:48] LABS: Alanine Aminotransferase 39 U/L (6-50); Alkaline Phosphatase 69 U/L (38-126); Anion Gap 7 mmol/L (8-16); Aspartate Amino Transferase 36 U/L (17-59); Bilirubin,Total 0.9 mg/dL (0.2-1.3); Blood Urea Nitrogen 18 mg/dL (9-20); Carbon Dioxide 29 mmol/L (22-30); Chloride 105 mmol/L (98-107); Estimated CRCL calculation 83 ml/min; Estimated Glomerular Filt Rate > 60; Glucose 119 mg/dL (65-110); INR 1.5; Potassium 3.8 mmol/L (3.4-5.0); Prothrombin Time 18.5 Seconds (11.1-14.7); Sodium 141 mmol/L (137-145)
[2023-09-13 10:49] LABS: Partial Thromboplastin Time 32.6 SECONDS (22.3-36.8)
[2023-09-13 11:00] LABS: Troponin I 0.042 ng/mL (0.000-0.034)
[2023-09-13] MEDS: HUMAN PROTHROMBIN COMPLEX(PCC) 3,500 UNITS in PREMIXIV 0 ML 500 UNITS IV CONT (11:17)
== END 2023-09-13 15:15 | disposition short-term general hospital (02) ==
PROVIDERS: Emergency Provider Emergency Medicine; PCP Internal Medicine
DX: I60.9 Nontraumatic subarachnoid hemorrhage, unspecified (principal); I61.8 Other nontraumatic intracerebral hemorrhage; R29.704 NIHSS score 4; I25.10 Atherosclerotic heart disease of native coronary artery without angina pectoris; I50.9 Heart failure, unspecified; N18.9 Chronic kidney disease, unspecified; I12.9 Hypertensive chronic kidney disease with stage 1 through stage 4 chronic kidney disease, or unspecified chronic kidney disease; E78.5 Hyperlipidemia, unspecified; E03.9 Hypothyroidism, unspecified; E66.9 Obesity, unspecified; Z68.39 Body mass index [BMI] 39.0-39.9, adult; E53.8 Deficiency of other specified B group vitamins; E55.9 Vitamin D deficiency, unspecified; M10.9 Gout, unspecified; Z96.649 Presence of unspecified artificial hip joint; Z95.2 Presence of prosthetic heart valve; Z86.010 Personal history of colon polyps; Z86.16 Personal history of COVID-19; Z87.891 Personal history of nicotine dependence; Z79.82 Long term (current) use of aspirin; Z79.01 Long term (current) use of anticoagulants; I48.91 Unspecified atrial fibrillation; I44.7 Left bundle-branch block, unspecified; I67.2 Cerebral atherosclerosis
CPT/HCPCS: 70450; 70496; 70498; 71045; 80053; 82948; 84484; 85025; 85610; 85730; 93005; 96365; 99285; J7168; Q9967

== ENCOUNTER 2023-09-18 09:49 | Outpatient (CLI) | payer MEDICARE, SELFPAY ==
[2023-09-20 11:47] LABS: Kappa\\Lambda Light Chains 1.59 (0.26-1.65)
[2023-09-23 14:51] LABS: Immunoglobulin A 312 mg/dL (70-320); Immunoglobulin G 1597 mg/dL (600-1540); Immunoglobulin M 96 mg/dL (50-300)
== END 2023-09-18 09:50 | disposition home or self-care (01) ==
PROVIDERS: PCP Internal Medicine; Visit Provider Internal Medicine Cardiovascular Disease
DX: Q24.8 Other specified congenital malformations of heart (principal); I61.9 Nontraumatic intracerebral hemorrhage, unspecified; I11.0 Hypertensive heart disease with heart failure; I50.32 Chronic diastolic (congestive) heart failure
CPT/HCPCS: 36415; 82784; 83883; 86334

== ENCOUNTER 2023-09-18 16:58 | Emergency (ER) | payer MEDICARE, SELFPAY ==
--- NOTE | ~2023-09-18 | XR_ITS ---
EXAMINATION: XR chest 1V portable DATE: 09/18/2023 17:58 INDICATION: Stroke. TECHNIQUE: A single frontal view of the chest was obtained. COMPARISON: Chest single view 09/13/2023, chest CT 01/10/2017 FINDINGS: There are airspace opacities in the lower lung zones. No pleural effusion or pneumothorax. Cardiomegaly is noted. Median sternotomy wires are noted. IMPRESSION: 1. Airspace opacities in the lower lung zones, consistent with atelectasis versus pneumonia. 2. Cardiomegaly. Reviewed, dictated and finalized at location E. Y SUPPLIES SALES REPRESENTATIVE IMPRESSION: 1. Airspace opacities in the lower lung zones, consistent with atelectasis vers us pneumonia. 2. Cardiomegaly.
--- NOTE | ~2023-09-18 | CT_ITS ---
EXAMINATION: CT brain wo con DATE: 09/18/2023 17:13 INDICATION: Strokelike symptoms. TECHNIQUE: Computed tomography (CT) of the head was performed without intravenous contrast. The mA wa s adjusted according to patient size. Iterative reconstruction technique was employed. The dose-lengt h product was 1362.00 mGy-cm. COMPARISON: Head CT 09/13/2023 FINDINGS: There is acute subarachnoid hemorrhage in sulci in the left frontal, parietal, and occipita l lobes. There are hyperdense masses in the right frontal lobe, left occipital lobe, and left parieta l lobe measuring up to 16 mm in left occipital lobe. There are scattered areas of low attenuation in the cerebral white matter. The ventricles are normal in size. The orbits are normal. There is mucosal thickening in the paranasal sinuses. The mastoid air cells are normal. IMPRESSION: 1. Acute subarachnoid hemorrhage in sulci in the left frontal, parietal, and occipital lobes with sli ght worsening. 2. Hyperdense masses again seen in the right frontal lobe, left occipital lobe, and left parietal lob e, likely intraparenchymal hematomas. Neoplasm is not excluded. Correlate with brain MRI without and with contrast if not already performed. 3. Mild nonspecific cerebral white matter disease, which likely represents chronic small vessel ische yudelka disease. Reviewed, dictated and finalized at location E. OR PRODUCT DEVELOPMENT MANAGER IMPRESSION: 1. Acute subarachnoid hemorrhage in sulci in the left frontal, parietal, and oc cipital lobes with slight worsening. 2. Hyperdense masses again seen in the right frontal lobe, left occipital lobe, and left parietal lobe, likely intraparenchymal hematomas. Neoplasm is not exc luded. Correlate with brain MRI without and with contrast if not already perfor med. 3. Mild nonspecific cerebral white matter disease, which likely represents yeast supervisor yaya small vessel ischemic disease.
[2023-09-18 16:56] VITALS: BP 119/79; PULSE 91; RESP 22; TEMP 36.4; O2SAT 97
[2023-09-18 17:25] VITALS: BP 108/63; PULSE 103; RESP 20; O2SAT 96
[2023-09-18 17:31] VITALS: BP 108/63; PULSE 85; RESP 16; O2SAT 96
--- NOTE | 2023-09-18 17:31 | ECG_ITS ---
Measurements Intervals [place] Rate: 93 P: [place]: 0 QRS: -11 QRSD: 174 T: 134 QT: 435 QTc: 544 Interpretive Statements ATRIAL FIBRILLATION LEFT BUNDLE BRANCH BLOCK ABNORMAL ECG COMPARED TO ECG 09/13/2023 10:29:42 NO SIGNIFICANT CHANGES Electronically Signed On 09-18-2023 18:58:32 COOK HOUSE SUPERVISOR by Aston Erwin D.O.
--- NOTE | 2023-09-18 17:34 | ED.NEUROSD ---
HPI - Neuro Symptoms/Deficit General Chief Complaint: Suspected CVA Stated Complaint: CVA? Time Seen by Provider: 09/18/23 17:08 Source: patient and family ( and son) Mode of arrival: EMS Limitations: no limitations History of Present Illness HPI Narrative: Pt reportedly had a hemorraghic stroke diagnosed over the weekend that required reversal of Elliquis (Hx AFib) and transfer to [facility] where he was under the care of neurologist Dr Greer as well as NSGY. Son reports that they were told his lesions were stable during time at [facility]. Patient's anticoagulation has been discontinued as of this past weekend; confirmed not taking by family. Patient had been discharged with remaining slurred speech and some R sided weakness although improving (son notes father was able to independently walk from car to house upon discharge). Today, he went to an appointment with varnishing unit operator Dr Zelaya. He needed some assistance with getting to the shower chair and difficulty walking, but was otherwise able to attend this appointment. Upon return home at approximately 1pm, he had difficulty using his walker and more difficulty getting up out of his chair. At approximately 3:30pm, he seemed to be experiencing worsening of slurred speech, right facial droop, and right sided weakness versus profound generalized weakness such that he required son and additional assistance to get out of chair. For this reason, decision made to transport to ED for evaluation. Related Data Home Medications Medication Instructions Recorded Confirmed amlodipine 5 mg tablet 5 mg PO DAILY 06/30/19 09/18/23 aspirin 81 mg tablet,delayed 81 mg PO DAILY 06/30/19 09/11/23 release (Adult Low Dose Aspirin) hydralazine 100 mg tablet 100 mg PO TID 06/30/19 09/18/23 omega-3 fatty acids 1,000 mg 1,000 mg PO DAILY 06/30/19 09/18/23 capsule (Fish Oil Concentrate) furosemide 80 mg tablet (Lasix) 80 mg PO DAILY PRN Edema 02/28/20 09/11/23 guanfacine 2 mg tablet 3 mg PO DAILY 03/24/20 09/18/23 cholecalciferol (vitamin D3) 50 50 mcg PO DAILY 06/04/22 09/18/23 mcg (2,000 unit) capsule rosuvastatin 5 mg tablet 5 mg PO DAILY 07/29/23 09/18/23 albuterol sulfate 2.5 mg/3 mL 2.5 mg inhalation Q4-6H PRN 09/18/23 09/18/23 (0.083 %) solution for nebulization shortness of breath or wheezing Allergies Allergy/AdvReac Type Severity Reaction Status Date / Time No Known Allergies Allergy Verified 09/18/23 17:25 [facility] Past Medical History Medical History ASHD (arteriosclerotic heart disease) Benign essential hypertension BMI 37.0-37.9, adult CHF (congestive heart failure) CKD (chronic kidney disease) Colon cancer screening Cough Diastolic dysfunction GAMINO (dyspnea on exertion) Encounter for Medicare annual wellness exam Encounter for routine adult health examination with abnormal findings Encounter for routine adult health examination without abnormal findings Encounter for special screening examination for neoplasm of prostate Gout Hearing loss History of atrial fibrillation Hx of colonic polyps Hyperlipidemia Hypothyroidism (acquired) LBBB (left bundle branch block) Lymphedema Mild cognitive disorder Obesity YESY on CPAP Personal history of COVID-19 URI (upper respiratory infection) Vitamin B12 deficiency Vitamin D deficiency Surgical History Surgical History H/O aortic valve replacement H/O total hip arthroplasty History of tonsillectomy and adenoidectomy Family History Family History (Updated 09/19/23 @ 02:27 by Trisha Cerna RN) Father Family history of lung disease Pulmonary fibrosis Grandparent Family history of lung disease Social History Social History (Updated 09/19/23 @ 08:00 by Laura Barros MD) Smoking status: Former smoker Tobacco type: cigarettes Second hand tobacco smoke exposure: No Alcohol intake: curre
[2023-09-18 17:35] LABS: Glucose Point of Care 131 mg/dl (65-105)
[2023-09-18 18:01] LABS: Basophils Absolute Auto 0.1 K/mm3 (0.0-0.1); Basophils Percent Auto 0.4 % (0.2-1.2); Eosinophils Percent Auto 0.1 % (0-4.4); Hematocrit 42.7 % (42.0-52.0); Hemoglobin 13.6 g/dL (14.0-18.0); Immature Granulocyte Absolute 0.09 K/mm3 (0.00-0.031); Immature Granulocyte Percent A 0.7 % (0-0.5); Lymphocytes Absolute Auto 0.59 K/mm3 (0.9-3.2); Lymphocytes Percent Auto 4.4 % (18.3-44.2); Mean Corpuscular HGB Conc 31.9 g/dl (32-36); Mean Corpuscular Hemoglobin 30.2 pg (26-34); Mean Corpuscular Volume 94.7 fl (80-100); Mean Platelet Volume 10.1 fl (7.4-10.4); Monocytes Absolute Auto 1.1 K/mm3 (0.1-0.6); Neutrophils Absolute Auto 11.5 K/mm3 (1.3-6.7); Neutrophils Percent Auto 86.4 % (45.5-73.1); Platelet Count Result 233 k/mm3 (150-375); Red Blood Count 4.51 M/mm3 (4.6-6.20); Red Cell Distribution Width 13.4 % (11.5-14.5); White Blood Count 13.3 K/mm3 (4.5-10.0)
[2023-09-18 18:01] LABS: Influenza A QL RT-PCR Negative (Negative); Influenza B QL RT-PCR Negative (Negative); RSV RNA, RT-PCR Negative (Negative); SARS-CoV-2 RNA PCR Negative (Negative)
[2023-09-18 18:38] LABS: Alanine Aminotransferase 27 U/L (6-50); Albumin Level 3.6 g/dL (3.5-5.1); Alkaline Phosphatase 68 U/L (38-126); Anion Gap 9 mmol/L (8-16); Aspartate Amino Transferase 27 U/L (17-59); Bilirubin,Total 1.4 mg/dL (0.2-1.3); Blood Urea Nitrogen 23 mg/dL (9-20); Calcium 8.7 mg/dL (8.4-10.2); Carbon Dioxide 22 mmol/L (22-30); Chloride 101 mmol/L (98-107); Estimated CRCL calculation 57 ml/min; Estimated Glomerular Filt Rate 54; Glucose 120 mg/dL (65-110); Magnesium 2.2 mg/dL (1.6-2.3); Sodium 132 mmol/L (137-145)
[2023-09-18 18:40] LABS: Troponin I 0.021 ng/mL (0.000-0.034)
[2023-09-18 18:51] LABS: INR 1.2; Prothrombin Time 15.5 Seconds (11.1-14.7)
[2023-09-18 18:52] LABS: Partial Thromboplastin Time 31.8 SECONDS (22.3-36.8)
--- NOTE | 2023-09-18 19:07 | PC.NURSE ---
Report given to Kamla ADAMS, all questions answered
[2023-09-18] MEDS: DOXYCYCLINE HYCLATE 100 MG TABLET PO (21:40)
[2023-09-18 22:02] VITALS: BP 112/62; PULSE 90; RESP 15; O2SAT 99
== END 2023-09-18 22:03 ==
PROVIDERS: Emergency Provider Student in an Organized Health Care Education/Training Program; PCP Internal Medicine
DX: J18.9 Pneumonia, unspecified organism (principal); I60.9 Nontraumatic subarachnoid hemorrhage, unspecified; R29.703 NIHSS score 3; Z20.822 Contact with and (suspected) exposure to COVID-19; I13.0 Hypertensive heart and chronic kidney disease with heart failure and stage 1 through stage 4 chronic kidney disease, or unspecified chronic kidney disease; N18.9 Chronic kidney disease, unspecified; I50.9 Heart failure, unspecified; I25.10 Atherosclerotic heart disease of native coronary artery without angina pectoris; E78.5 Hyperlipidemia, unspecified; E03.9 Hypothyroidism, unspecified; E53.8 Deficiency of other specified B group vitamins; E55.9 Vitamin D deficiency, unspecified; I89.0 Lymphedema, not elsewhere classified; M10.9 Gout, unspecified; G47.33 Obstructive sleep apnea (adult) (pediatric); Z95.2 Presence of prosthetic heart valve; Z96.649 Presence of unspecified artificial hip joint; Z86.010 Personal history of colon polyps; Z86.16 Personal history of COVID-19; Z87.891 Personal history of nicotine dependence; I48.91 Unspecified atrial fibrillation; I44.7 Left bundle-branch block, unspecified; R90.82 White matter disease, unspecified; I51.7 Cardiomegaly
CPT/HCPCS: 36415; 70450; 71045; 80053; 82784; 82948; 83735; 83883; 84484; 85025; 85610; 85730; 86334; 87637; 93005; 99284; A9270

== ENCOUNTER 2023-11-07 09:30 | Outpatient (RCR) | payer MEDICARE, SELFPAY ==
--- NOTE | 2023-09-30 17:07 | PTOPEVAL1 ---
Assessment and note entered by Faustino De Luna, PT Evaluation Information Assessment Status Evaluation Diagnosis CVA, generalized weakness Onset 09/12/23 Subjective Information Reports that he feels he has been having memory issues for a while even prior to CVA. L sided brain bleed and noticed difficulty with R handed gripping. He was fully independent prior to CVA, driving, and navigating stairs. 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 Reports that he feels he is making steady progress. He has been using a walker intermittently but can function without one. He does not need to navigate steps in his home. No trouble sleeping. Feels he has about a 25 yard capacity for ambulation. Reported Pain Level Pain Score 0: Self Report Assessment PT Clinical Summary Patient presents with significant vestibular deficits evident through stance and uneven surface activity. Overall he presents as a very good candidate for therapy as he has already come a long way in the past 2 weeks and presents with no glaring significant strength deficits limiting balance training and functional training. Will need emphasis on proprioceptive and vestibular training for senior care success. Plan of Care Interventions Gait Training,Mechanical Traction,Neuro Re- education,Therapeutic Activities,Therapeutic Exercise PT Services Indicated Yes Treatment Frequency and 2x/week for 10 visits Duration These treatments will address the objective and functional deficits as defined above. The patient will be advanced safely and appropriately in order for the patient to progress towards his/her prior level of function. Additional exercises will be introduced and as well as a comprehensive home exercise program upon discharge, if needed, ?to ensure carryover of functional gains achieved in the clinic. This treatment plan has been reviewed and agreement upon by the patient.
--- NOTE | 2023-09-30 17:07 | OPREHPOC ---
Outpatient Therapy Plan of Care This is a Multidisciplinary Plan of Care that may contain components documented by all disciplines (PT, OT, and ST.) PT Problem 1 PT Problem #1 Knowledge Deficit PT Goal 1 Goal Patient will be independent with HEP Target Visit 4 PT Problem 2 PT Problem #2 Impaired Balance PT Goal 1 Goal Patient will demonstrate 7 point improvement in [place] Target Visit 10 PT Goal 2 Goal Patient will ambulate with single point cane for greater than 500 feet without loss of balance Target Visit 10 PT Problem 3 PT Problem #3 Impaired Strength PT Goal 1 Goal Improve justin hip flexion strength to 5/5 to improve foot clearance with gait and stair navigation Target Visit 10 PT Goal 2 Goal Improve justin hip abduction strength to 5/5 to improve lateral stability with stance, gait, and functional activity. Target Visit 10
--- NOTE | 2023-10-10 14:27 | PCPTNOTE ---
Patient cancelled today secondary to weather.
--- NOTE | 2023-10-20 09:15 | OTOPDC ---
Assessment and note entered by MINA Kaplan/Deloris, CHT Evaluation Report and Discharge Summary 10/20/23 Diagnosis CVA, generalized weakness Onset 09/12/23 Subjective Information Patient reports his motor skills on the right arm seem back to normal. States he has some residual numbness in the hand. Otherwise is completing ADLs with the right hand without difficulty. Patient and report he's had made good progress with the arm since his CVA. He is currently receiving PT. Reported Pain Level Pain Score 0: Self Report Assessment OT Clinical Summary Patient referred to OT s/p CVA with his right, dominant side affected. He presents today with intact and functional strength and coordination. Provided HEP for generalized strengthening as well as HEP for right scientific technical writer. He demonstrates good understanding of all materials. He is in agreement with discharge. D/C OT with HEP. Plan of Care OT Services Indicated No
--- NOTE | 2023-11-07 09:30 | PTOPEVAL1 ---
Assessment and note entered by Faustino De Luna, PT Evaluation Information Assessment Status Evaluation Diagnosis CVA, generalized weakness Onset 09/12/23 Subjective Information Reports that he feels he has been having memory issues for a while even prior to CVA. L sided brain bleed and noticed difficulty with R handed gripping. He was fully independent prior to CVA, driving, and navigating stairs. 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 Reports that he feels he is making steady progress. He has been using a walker intermittently but can function without one. He does not need to navigate steps in his home. No trouble sleeping. Feels he has about a 25 yard capacity for ambulation. Reported Pain Level Pain Score 0: Self Report Assessment PT Clinical Summary Patient presents with significant vestibular deficits evident through stance and uneven surface activity. Overall he presents as a very good candidate for therapy as he has already come a long way in the past 2 weeks and presents with no glaring significant strength deficits limiting balance training and functional training. Will need emphasis on proprioceptive and vestibular training for assisted success. Plan of Care Interventions Gait Training,Mechanical Traction,Neuro Re- education,Therapeutic Activities,Therapeutic Exercise PT Services Indicated Yes Treatment Frequency and 2x/week for 10 visits Duration These treatments will address the objective and functional deficits as defined above. The patient will be advanced safely and appropriately in order for the patient to progress towards his/her prior level of function. Additional exercises will be introduced and as well as a comprehensive home exercise program upon discharge, if needed, ?to ensure carryover of functional gains achieved in the clinic. This treatment plan has been reviewed and agreement upon by the patient.
--- NOTE | 2023-11-07 11:13 | PTOPDC ---
Assessment and note entered by Faustino De Luna, PT Evaluation Information Assessment Status Discharge Diagnosis CVA, generalized weakness Onset 09/12/23 Subjective Information Reports that he feels he is doing significantly better at this time. Reports that he is using a cane sparingly at home. Feels stronger and more steady on his feet. Would like to be discharged to [facility] at this time. Reported Pain Level Pain Score 0: Self Report Assessment PT Clinical Summary Patient met or exceeded all of his goals for therapy at this time and is suitable for discharge to [facility]. Plan of Care PT Services Indicated D/C to [facility]
== END 2023-11-10 13:06 | disposition home or self-care (01) ==
LOC: ANHGOSHPT 09:30
PROVIDERS: PCP Internal Medicine; Visit Provider Internal Medicine
DX: I63.9 Cerebral infarction, unspecified (principal); R53.1 Weakness
CPT/HCPCS: 97110; 97112; 97161; 97165; 97530

== ENCOUNTER 2023-12-01 11:04 | Outpatient (CLI) | payer MEDICARE, SELFPAY ==
--- NOTE | ~2023-12-01 | US_ITS ---
EXAMINATION: US renal BI DATE: 12/01/2023 12:36 INDICATION: Elevated creatinine. Hypertension. TECHNIQUE: Multiple ultrasound grayscale images of the kidneys were obtained. COMPARISON: None. FINDINGS: The right kidney measures 12.1 x 5.3 x 6.6 cm. The left kidney measures 10.9 x 5.0 x 5.0 cm. The kidn eys demonstrate normal parenchymal echogenicity. There is no hydronephrosis. The bladder is normal. IMPRESSION: 1. Normal kidney sizes. No hydronephrosis. Reviewed, dictated and finalized at location A.
[2023-12-01 11:42] LABS: Anion Gap 5 mmol/L (4-12); Blood Urea Nitrogen 14 mg/dL (9-20); Calcium 9.2 mg/dL (8.4-10.2); Carbon Dioxide 32 mmol/L (22-30); Chloride 103 mmol/L (98-107); Estimated Glomerular Filt Rate > 60; Glucose 87 mg/dL (65-110); Potassium 3.9 mmol/L (3.4-5.0); Sodium 140 mmol/L (137-145)
== END 2023-12-01 11:05 | disposition home or self-care (01) ==
PROVIDERS: PCP Internal Medicine; Visit Provider Internal Medicine
DX: I13.0 Hypertensive heart and chronic kidney disease with heart failure and stage 1 through stage 4 chronic kidney disease, or unspecified chronic kidney disease (principal); I50.9 Heart failure, unspecified; N18.9 Chronic kidney disease, unspecified
CPT/HCPCS: 36415; 76775; 80048

== ENCOUNTER 2024-02-02 08:45 | Outpatient (CLI) | payer MEDICARE, SELFPAY ==
[2024-02-02 09:23] LABS: Basophils Absolute Auto 0.1 K/mm3 (0.0-0.1); Basophils Percent Auto 0.8 % (0.2-1.2); Eosinophils Absolute Auto 0.1 K/mm3 (0-0.3); Eosinophils Percent Auto 1.7 % (0-4.4); Hematocrit 41.5 % (42.0-52.0); Hemoglobin 13.5 g/dL (14.0-18.0); Immature Granulocyte Absolute 0.07 K/mm3 (0.00-0.031); Immature Granulocyte Percent A 1.1 % (0-0.5); Lymphocytes Absolute Auto 0.82 K/mm3 (0.9-3.2); Lymphocytes Percent Auto 12.7 % (18.3-44.2); Mean Corpuscular HGB Conc 32.5 g/dl (32-36); Mean Corpuscular Hemoglobin 29.5 pg (26-34); Mean Corpuscular Volume 90.6 fl (80-100); Mean Platelet Volume 10.3 fl (7.4-10.4); Monocytes Absolute Auto 0.8 K/mm3 (0.1-0.6); Monocytes Percent Auto 11.6 % (2.6-8.5); Neutrophils Absolute Auto 4.7 K/mm3 (1.3-6.7); Neutrophils Percent Auto 72.1 % (45.5-73.1); Platelet Count Result 169 k/mm3 (150-375); Red Blood Count 4.58 M/mm3 (4.6-6.20); Red Cell Distribution Width 14.6 % (11.5-14.5); White Blood Count 6.5 K/mm3 (4.5-10.0)
[2024-02-02 09:34] LABS: Alanine Aminotransferase 17 U/L (6-50); Albumin Level 4.2 g/dL (3.5-5.1); Alkaline Phosphatase 67 U/L (38-126); Anion Gap 7 mmol/L (4-12); Aspartate Amino Transferase 24 U/L (17-59); Blood Urea Nitrogen 11 mg/dL (9-20); Calcium 8.9 mg/dL (8.4-10.2); Carbon Dioxide 30 mmol/L (22-30); Chloride 101 mmol/L (98-107); Cholesterol 115 mg/dL (0-200); Estimated Glomerular Filt Rate > 60; Glucose 96 mg/dL (65-110); HDL Direct 54 mg/dL; Potassium 3.4 mmol/L (3.4-5.0); Sodium 138 mmol/L (137-145); Triglycerides 57 mg/dL (<150)
[2024-02-02 09:46] LABS: LDL Cholesterol Direct 53 mg/dL
[2024-02-02 10:01] LABS: Free T4 Free Thyroxine 1.79 ng/mL (0.78-2.19); Vitamin D 25 Hydroxy 24.6 ng/mL
[2024-02-02 10:08] LABS: Prostate Specific Antigen 0.8 ng/mL (< OR = 4.0)
[2024-02-02 10:24] LABS: Hemoglobin A1C 4.9 % (<5.7)
== END 2024-02-02 08:46 | disposition home or self-care (01) ==
LOC: ANHLAB 08:47
PROVIDERS: PCP Internal Medicine; Visit Provider Internal Medicine
DX: E78.5 Hyperlipidemia, unspecified (principal); I10 Essential (primary) hypertension; I50.9 Heart failure, unspecified; Z13.1 Encounter for screening for diabetes mellitus; Z79.899 Other long term (current) drug therapy; E03.9 Hypothyroidism, unspecified; E55.9 Vitamin D deficiency, unspecified; Z12.5 Encounter for screening for malignant neoplasm of prostate
CPT/HCPCS: 36415; 80053; 80061; 82306; 83036; 84153; 84439; 84443; 85025; G0103

== ENCOUNTER 2024-06-15 10:19 | Outpatient (CLI) | payer MEDICARE, SELFPAY ==
[2024-06-15 10:56] LABS: Basophils Absolute Auto 0.1 K/mm3 (0.0-0.1); Eosinophils Absolute Auto 0.1 K/mm3 (0-0.3); Eosinophils Percent Auto 1.6 % (0-4.4); Hematocrit 42.3 % (42.0-52.0); Hemoglobin 14.2 g/dL (14.0-18.0); Immature Granulocyte Absolute 0.01 K/mm3 (0.00-0.031); Immature Granulocyte Percent A 0.1 % (0-0.5); Lymphocytes Percent Auto 13.3 % (18.3-44.2); Mean Corpuscular HGB Conc 33.6 g/dl (32-36); Mean Corpuscular Hemoglobin 31.1 pg (26-34); Mean Corpuscular Volume 92.8 fl (80-100); Mean Platelet Volume 10.1 fl (7.4-10.4); Monocytes Absolute Auto 0.7 K/mm3 (0.1-0.6); Platelet Count Result 157 k/mm3 (150-375); Red Blood Count 4.56 M/mm3 (4.6-6.20); Red Cell Distribution Width 13.7 % (11.5-14.5); White Blood Count 6.8 K/mm3 (4.5-10.0)
[2024-06-15 11:06] LABS: Alanine Aminotransferase 18 U/L (6-50); Albumin Level 4.2 g/dL (3.5-5.1); Alkaline Phosphatase 66 U/L (38-126); Amylase 76 U/L (30-110); Anion Gap 6 mmol/L (4-12); Aspartate Amino Transferase 22 U/L (17-59); Bilirubin,Total 0.9 mg/dL (0.2-1.3); Blood Urea Nitrogen 16 mg/dL (9-20); Calcium 9.4 mg/dL (8.4-10.2); Carbon Dioxide 32 mmol/L (22-30); Chloride 100 mmol/L (98-107); Cholesterol 109 mg/dL (0-200); Estimated Glomerular Filt Rate > 60; Glucose 111 mg/dL (65-110); HDL Direct 53 mg/dL; Lipase 64 U/L (23-300); Potassium 3.4 mmol/L (3.4-5.0); Sodium 138 mmol/L (137-145); Triglycerides 73 mg/dL (<150)
[2024-06-15 11:09] LABS: Hemoglobin A1C 5.1 % (<5.7)
[2024-06-15 11:19] LABS: LDL Cholesterol Direct 39 mg/dL
[2024-06-15 11:36] LABS: Thyroid Stimulating Hormone 0.913 uIU/mL (0.465-4.680)
[2024-06-15 11:54] LABS: Free T4 Free Thyroxine 1.57 ng/mL (0.78-2.19); Vitamin D 25 Hydroxy 55.1 ng/mL
[2024-06-16 06:43] LABS: GGT 19 U/L (3-70)
== END 2024-06-15 10:20 | disposition home or self-care (01) ==
LOC: ANHLAB 10:21
PROVIDERS: PCP Internal Medicine; Visit Provider Internal Medicine
DX: K86.89 Other specified diseases of pancreas (principal); E55.9 Vitamin D deficiency, unspecified; E03.9 Hypothyroidism, unspecified; I11.0 Hypertensive heart disease with heart failure; I50.9 Heart failure, unspecified; E78.5 Hyperlipidemia, unspecified; Z13.1 Encounter for screening for diabetes mellitus; Z79.899 Other long term (current) drug therapy
CPT/HCPCS: 36415; 80053; 80061; 82150; 82306; 82977; 83036; 83690; 84439; 84443; 85025

== ENCOUNTER 2024-06-24 07:38 | Outpatient (CLI) | payer MEDICARE, SELFPAY ==
--- NOTE | ~2024-06-24 | CT_ITS ---
CT of the Abdomen: Indication: Other specified disease of pancreas Technique: 2.5 mm axial scans were obtained through the abdomen following intravenous administration of 100 cc of Omnipaque 350. Dose reduction technique was used on this scan by utilizing automated ex posure control and iterative reconstruction technique. The dose-length product (DLP) was 1136.58 mGy- cm. Findings: Scans through the lung bases are unremarkable. Cardiomegaly noted. The liver, spleen, gallbladder, adrenals and kidneys are within normal limits. There is a 2.2 x 1.3 c m probable cystic mass at the dorsal aspect of the pancreatic neck (axial image 51-55). No evidence o f aortic aneurysm. There is mild haziness of the central mesentery, small shotty lymph nodes. Visualized bowel loops are unremarkable. No ascites. Small fat-containing umbilical hernia noted. Bilateral L5 pars interarticularis defects are present, with grade 1 anterolisthesis of L5 over S1. Impression: 2.2 x 1.3 cm probable cystic mass of the pancreas. This is most likely a low malignant potential lesi on, such as side branch IPMN or other small cystic neoplasm. Annual follow-up advised. Consider MR/MR CP for further evaluation at this time, as indicated. Mild mesenteric panniculitis. Reviewed, dictated and finalized at location . Impression: 2.2 x 1.3 cm probable cystic mass of the pancreas. This is most likely a low ma lignant potential lesion, such as side branch IPMN or other small cystic neopla sm. Annual follow-up advised. Consider MR/MRCP for further evaluation at this t tanya, as indicated. Mild mesenteric panniculitis.
== END 2024-06-24 07:39 | disposition home or self-care (01) ==
PROVIDERS: PCP Internal Medicine; Visit Provider Internal Medicine
DX: K86.89 Other specified diseases of pancreas (principal)
CPT/HCPCS: 74160; Q9967

== ENCOUNTER 2024-11-24 09:48 | Outpatient (CLI) | payer MEDICARE, SELFPAY ==
[2024-11-24 10:21] LABS: Basophils Percent Auto 0.6 % (0.2-1.2); Eosinophils Absolute Auto 0.1 K/mm3 (0-0.3); Eosinophils Percent Auto 2.1 % (0-4.4); Hemoglobin 14.4 g/dL (14.0-18.0); Immature Granulocyte Absolute 0.01 K/mm3 (0.00-0.031); Immature Granulocyte Percent A 0.2 % (0-0.5); Lymphocytes Absolute Auto 0.89 K/mm3 (0.9-3.2); Lymphocytes Percent Auto 13.4 % (18.3-44.2); Mean Corpuscular HGB Conc 35.1 g/dl (32-36); Mean Corpuscular Hemoglobin 32.1 pg (26-34); Mean Corpuscular Volume 91.5 fl (80-100); Mean Platelet Volume 10.1 fl (7.4-10.4); Monocytes Absolute Auto 0.7 K/mm3 (0.1-0.6); Monocytes Percent Auto 9.9 % (2.6-8.5); Neutrophils Absolute Auto 4.9 K/mm3 (1.3-6.7); Neutrophils Percent Auto 73.8 % (45.5-73.1); Platelet Count Result 163 k/mm3 (150-375); Red Blood Count 4.48 M/mm3 (4.6-6.20); Red Cell Distribution Width 14.3 % (11.5-14.5); White Blood Count 6.6 K/mm3 (4.5-10.0)
[2024-11-24 10:22] LABS: Add Urine Microscopic? NO; Appearance Urine Clear (Clear); Bilirubin Urine Negative (Negative); Blood Urine Negative (Negative); Color Urine Yellow (Yellow); Glucose Urine UA Negative (Negative); Ketones Urine Negative (Negative); Leukocyte Esterase Ur Negative LEU/UL (Negative); Nitrate Urine Negative (Negative); Protein Urine Negative (Negative); Specific Grav Ur 1.017 (1.001-1.035); pH Urine 6.5 (5.0-9.0)
[2024-11-24 10:31] LABS: Alanine Aminotransferase 23 U/L (6-50); Albumin Level 4.3 g/dL (3.5-5.1); Alkaline Phosphatase 76 U/L (38-126); Amylase 69 U/L (30-110); Anion Gap 7 mmol/L (4-12); Aspartate Amino Transferase 28 U/L (17-59); Bilirubin,Total 1.4 mg/dL (0.2-1.3); Blood Urea Nitrogen 16 mg/dL (9-20); Calcium 9.1 mg/dL (8.4-10.2); Carbon Dioxide 30 mmol/L (22-30); Chloride 101 mmol/L (98-107); Cholesterol 108 mg/dL (0-200); Estimated Glomerular Filt Rate > 60; Glucose 100 mg/dL (65-110); HDL Direct 53 mg/dL; Lipase 59 U/L (23-300); Potassium 3.8 mmol/L (3.4-5.0); Sodium 138 mmol/L (137-145); Triglycerides 76 mg/dL (<150)
[2024-11-24 10:44] LABS: LDL Cholesterol Direct 37 mg/dL
[2024-11-24 10:47] LABS: Free T4 Free Thyroxine 1.69 ng/dL (0.78-2.19); Vitamin D 25 Hydroxy 66.8 ng/mL
--- OUTSIDE RECORDS SUMMARY | 2024-11-24 10:47 | XMS_ITS | Referral Summary ---
Author Organization [facility] [address] Address [address] [place] [address] Care Team Providers Care Rehab Physician Name Role Phone Marshall Ferrara MD Primary Care Provider [phone] Luis Mcfadden MD Unavailable [phone] Scott Lozano MD Unavailable [phone] Allergies Active Allergy Reactions Criticality Noted Date Comments Apixaban Other (See comments) Low 10/06/2023 Pt states he cannot take blood thinners, he reported having a brain bleed while on them. Medications fish oil-dha-epa 1,200-144-216 mg capsuleIndicatio ns:Supplement Take 1 capsule by mouth value stream leader before breakfast Active colchicine (COLCRYS) 0.6 mg tabletIndication s:acute gouty arthritis Take 1 tablet (0.6 mg total) by mouth daily as needed (Gout Flare Up) 1 Active donepeziL (ARICEPT) 10 mg tabletIndication s:Unknown Take 1 tablet (10 mg total) by mouth value stream leader before breakfast 2 Active rosuvastatin (CRESTOR) 10 mg tablet TAKE 1 TABLET BY MOUTH EVERY DAY 90 tablet 3 3 Active albuterol HFA (PROVENTIL HFA,VENTOLIN HFA,PROAIR HFA) 90 mcg/actuation inhalerIndicatio ns:Pneumonia Inhale 2 puffs every 4 (four) hours as needed for wheezing or shortness of breath 4 Active albuterol 2.5 mg /3 mL (0.083 %) nebulizer solutionIndicati ons:Pneumonia Take 3 mL (2.5 mg total) by nebulization every 4 (four) hours as needed for wheezing or shortness of breath 4 Active potassium chloride ER 10 mEq CR tabletIndication s:hypokalemia prevention Take 1 tablet/capsule (10 mEq total) by mouth value stream leader before breakfast 3 Active carvediloL (COREG) 25 mg tabletIndication s:Ventricular Rate Control in Atrial Fibrillation,hyp ertension Take 1 tablet (25 mg total) by mouth 2 (two) times a day with meals 4 026 Active levothyroxine sodium (Tirosint) 100 mcg capsuleIndicatio ns:hypothyroidis m Take 1 capsule (100 mcg total) by mouth value stream leader before breakfast 4 026 Active hydroCHLOROthiaz rochelle (HYDRODIURIL) 12.5 mg tablet Take 1 tablet (12.5 mg total) by mouth daily 4 025 Active cholecalciferol (VITAMIN D-3) 2000 unit capsule 1 capsule (2,000 Units total) Active hydrALAZINE (APRESOLINE) 100 mg tablet Take 1 tablet (100 mg total) by mouth 3 (three) times a day 270 tablet 3 4 Active aspirin 325 mg tabletIndication s:Thrombosis Prevention Take 1 tablet (325 mg total) by mouth daily 90 tablet 3 4 025 Active lisinopriL (PRINIVIL,ZESTRI L) 30 mg tablet Take 1 tablet (30 mg total) by mouth 2 (two) times a day 4 Active doxazosin (CARDURA) 2 mg tabletIndication s:Essential hypertension Take 1 tablet (2 mg total) by mouth nightly 90 tablet 3 4 025 Active Active Problems Problem Noted Date Diagnosed Date Presence of Watchman left atrial appendage closu re device 12/09/2023 Assessment & Plan (06/21/2024 12:19 PM CDT): Status post Watchman on 12/09/[address] Lozano. ALIYAH on 01/09/24 noting no evidence of leak or thrombus. He is asymptomatic with no bleeding issues on DAPT. Can stop Plavix. Follow up in November. Continue close follow up with primary certified orthotist practice manager. Keep BP diary and take to appointment on Friday. Assessment & Plan (01/26/2024 11:44 AM CDT): Status post Watchman on 12/09/[address] Lozano. ALIYAH on 01/09/24 noting no evidence of leak or thrombus. He is asymptomatic with no bleeding issues on DAPT. Continue DAPT. Can stop Plavix at 6 months. Follow up in May for 6 month post watchman follow up. Continue close follow up with primary certified orthotist practice manager. Assessment & Plan (12/10/2023 11:53 AM CDT): See under persistent Afib Cerebrovascular accident (CV A) due to embolism of cerebral artery 09/18/2023 Contraindication to aspirin at discharge 024 Hemorrhagic stroke 09/13/2023 Assessment & Plan (12/10/2023 11:52 AM CDT): - treated conservatively. He currently has some residual paresthesias in right hand, without other muscle weakness, vision or language deficits - off ASA and Eliquis since hemorrhagic stroke in 08/2023 - reassessed by Neurology on 12/04/23 - his multifocal intracranial hemorrhage is cerebral amyloid angiopathy based on the radiographic findings on his MRI . - started ASA and plavix post watchman implantation (this am). Essential hypertension 03/11/2023 Assessment & Plan (12/10/2023 11:52 AM CDT): - continue home coreg, lisinopril (taking 30mg bid at home), hydralazine 100mg tid, HCTZ 12.5mg daily - hypertensive on admission, BP with better control. Morbid (severe) obesity due to excess calories 0 09/05/2022 Body mass index 40.0-44.9, adult ([facility]) 09/05 Mixed hyperlipidemia 02/27/2022 Assessment & Plan (12/09/2023 10:26 PM CDT): - continue home Rosuvastatin 10mg daily Chronic heart failure with preserved ejection fr action 05/15/2020 LBBB (left bundle branch block) 09/27/2019 Coronary artery disease invo lving [place] coronary artery of [place] heart without angina pectoris 09/27/2019 ASD (atrial septal defect), ostium secundum 05/26 Other persistent atrial fibrillation 04/14/2019 Assessment & Plan (12/10/2023 11:53 AM CDT): - s/p successful LAAO with watchman implantation 12/09/23 - off Eliquis since hemorrhagic stroke in 08/2023 - started ASA 81mg daily, plavix 75mg daily this am. - continue carvedilol 25mg bid - continue telemetry Chronic anticoagulation 04/14/2019 Hypertensive urgency 09/15/2018 Pulmonary HTN (CMS/HCC) 04/03/2018 GAMINO (dyspnea on exertion) 09/23/2017 Hypertensive heart disease with heart failure ([facility] MS/HCC) 09/23/2017 CKD (chronic kidney disease) stage 3, GFR 30-59 ml/min 09/23/2017 Morbid obesity with BMI of 40.0-44.9, adult 02/23 YESY on CPAP 03/18/2017 Left ventricular outflow tract obstruction 06/18 Overview (11/30/2016): Left ventricular outflow tract obstruction S/P aortic valve replacement with bioprosthetic valve 04/17/2016 Overview (11/30/2016): S/P aortic valve replacement with bioprosthetic valve Body mass index 40+ - severely obese 04/17/2016 Overview (11/30/2016): Morbid obesity with BMI of 40.0-44.9, adult Aortic valve stenosis 04/13/2013 Assessment & Plan (12/09/2023 10:22 PM CDT): - s/p bioprosthetic AVR in 2012 - off ASA since hemorrhagic stroke in 08/2023 - start ASA 81mg daily post watchman implantation 12/09/23 Resolved Problems Problem Noted Date Diagnosed Date Resolved Date Dyslipidemia 04/17/2016 02/27/2022 Overview (11/30/2016): Dyslipidemia Immunizations Immunization Administration Dates Next Due Influenza, Unspecified 06/12/2023 Social History Tobacco Use Types Packs/Day Years Used Date Smoking Tobacco: Former Cigarettes 1 10 0 08/25/1970 - 1980 Smokeless Tobacco: Never Alcohol Use Standard Drinks/Week Comments Yes 0 (1 standard drink = 0.6 oz pur e alcohol) [facility] Utilities Answer Date Recorded In the past 12 months has e electric, gas, oil, or water company threatened to shut off services in your home? No 12/11/2023 Social Connection and Isolat ion Panel [NHANES] Answer Date Recorded In a typical week, how many times do you talk on the phone with family, friends, or neighbors? More than three times a week 12/11/2023 How often do you get togethe r with friends or relatives? More than three times a week 12/11/2023 How often do you attend chur ch or orthodox services? Never 12/11/2023 Do you belong to any clubs o r organizations such as orthodoxy groups, unions, fraternal or athletic groups, or school groups? No 12/11/2023 How often do you attend meet ings of the clubs or organizations you belong to? Never 12/11/2023 Are you , , di vorced, , never , or living with a partner? 12/11/2023 AUDIT-C Answer Date Recorded Q1: How often do you have a drink containing alcohol? 4 or more times a week 12/09/2023 Q2: How many drinks containi ng alcohol do you have on a typical day when you are drinking? 1 or 2 Q3: How often do you have si x or more drinks on one occasion? Never 12/09/2023 Overall Financial Resource Strain (CARDIA) Answe r Date Recorded How hard is it for you to pa y for the very basics like food, housing, medical care, and heating? Not hard at all 12/11/2023 PHQ-2 Answer Date Recorded PHQ-2 Total Score (If total score is 3 or more points, staff should administer the PHQ-9) 0 09/13/2023 Hunger Vital Sign Answer Date Recorded Within the past 12 months, y ou worried that your food would run out before you got the money to buy more. Never true 12/11/19 24 Within the past 12 months, t he food you bought just didn't last and you didn't have money to get more. Never true 12/11/2023 PRAPARE - Transportation Answer Date Re corded In the past 12 months, has l ack of transportation kept you from medical appointments or from getting medications? No 11/23 In the past 12 months, has l ack of transportation kept you from meetings, work, or from getting things needed for daily living? No 12/11/2023 Housing Stability Vital Sign Answer Jaden e Recorded In the last 12 months, was t here a time when you were not able to pay the mortgage or rent on time? No 12/11/2023 In the last 12 months, how many places have you lived? 1 12/11/2023 In the last 12 months, was t here a time when you did not have a steady place to sleep or slept in a intermediate (including now)? No 12/11/2023 Personal Safety Answer Date Recorded Have you ever been in or are you currently in a harmful physical or emotional relationship or is someone making you feel afraid or unsafe? Denies 01/09/2024 Sex and Gender Information Value Date Recorded Sex Assigned at Not on file Legal Sex Male 10:37 AM MAITRE D' Gender Identity Not on file Sexual Orientation Not on file Last Filed Vital Signs Vital Sign Reading Time Taken Comments Blood Pressure 148/90 07/30/2024 8:13 AM MAITRE D' Pulse 75 07/30/2024 8:13 AM MAITRE D' Temperature 36.3 C (97.3 F) 06/07/2024 1:13 PM CDT Respiratory Rate 19 01/09/2024 10:10 AM CDT Oxygen Saturation 96% 07/30/2024 8:13 AM MAITRE D' Inhaled Oxygen Concentration - - Weight 124.7 kg (275 lb) 07/30/2024 8:13 AM MAITRE D' Height 177.8 cm (5' 10 ) 07/30/2024 8:13 AM MAITRE D' Body Mass Index 39.46 07/30/2024 8:13 AM MAITRE D' Plan of Treatment Not on file Medical Devices Implanted Type Area Box Sorter Device Identifier Shelf Expiration Date Model / Serial / Lot [employer]yn Occluder Cardiovascular 31mm Dlv Sys Watchman Flx Strl [id number] - [id number] Implanted:Qty: 1 on 12/09/2023 by Scott Lozano MD at [facility] Left Atrial Appendage Occluder Left: Atrial Appendage [employer] Kristyn 12/09/2025 [id number] / / [id number] Prosthetic Valve Prosthetic Valve N/A: Heart Description:aortic [employer] Device Clsr Perclose Prostyle Sut-Mediatd Closure-Repair Sys 48575-79 - [id number] Implanted:Qty: 1 on 12/09/2023 by Scott Lozano MD at [facility] Vascular Closure Device Right: Femoral Vein [employer] 07/24/2025 [id number] / / [id number] [employer] Device Clsr Perclose Prostyle Sut-Mediatd Closure-Repair Sys 17643-24 - [id number] Implanted:Qty: 1 on 12/09/2023 by Scott Lozano MD at [facility] Vascular Closure Device Left: Femoral Vein [employer] 07/24/2025 [id number] / / [id number] [employer] Device Clsr Perclose Prostyle Sut-Mediatd Closure-Repair Sys 27618-85 - [id number] Implanted:Qty: 1 on 12/09/2023 by Scott Lozano MD at [facility] Vascular Closure Device Left: Femoral Vein [employer] 07/24/2025 [id number] / / [id number] [employer] Kristyn Watchman Flx Procedure Device Wmflxperproc - [id number] Implanted:Qty: 1 on 12/09/2023 by Scott Lozano MD at [facility] Left: Atrial Appendage [employer] Kristyn [id number] / / Procedures Procedure Name Priority Date/Time Associated Diagnosis Comments CT CHEST ABDOMEN PELVIS W CONTRAST IP Routine 09/13/2023 8:40 PM MAITRE D' from Last 3 Months or Most Recently Relevant to Health Maintenance Results * CT Chest Abdomen Pelvis W Contrast (09/13/2023 8:40 PM MAITRE D') Anatomical Region Laterality Modality Body N/A Computed Tomogra phy 09/14/2023 7:13 AM MAITRE D' Addenda Addendum by Hola Ardon MD on 06/15/2024 2:32 PM CDT Per phone call with Carly at pcp office, pcp is following patient for incidental finding locally. Jennifer PINON RN. Edited by: Jennifer Arreaga Electronically signed by: Hola Ardon M.D., MPH Impressions 09/14/2023 7:13 AM MAITRE D' 1. No definite primary malignancy identified in the chest, abdomen or pelvis that would explain the patient's intracranial hemorrhage. 2. 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 Recommend follow-up MRI/MRCP in 6 months. Recommend follow up of the Incidental pancreas lesion Additional Imaging In 6 Months with MRCP. Electronically signed by: Landon Delgado M.D. Narrative 09/14/2023 7:13 AM MAITRE D' EXAMINATION: Computed tomography of the chest, abdomen and pelvis with intravenous contrast HISTORY: Evaluate for potential primary cancer in the setting of multifocal intraparenchymal hemorrhage. TECHNIQUE: Transaxial computed tomographic images of the chest, abdomen and pelvis were obtained with intravenous contrast according to the standard protocol after the uneventful administration of 144 mL Opti-Ray 350 intravenous contrast. COMPARISON: None FINDINGS: Chest: There is cardiomegaly. No pericardial effusion. Prosthetic aortic valve is noted. There are three-vessel coronary vascular calcifications. Thyroid gland and esophagus are within normal limits. There is no supraclavicular, mediastinal or axillary lymphadenopathy. Mild bilateral gynecomastia is noted. There is no pneumonic consolidation, pleural effusion or pneumothorax. Calcified pulmonary granulomas are noted in keeping with healed old granulomatous disease. No suspicious pulmonary nodules identified. Abdomen/Pelvis: There is no intrahepatic biliary ductal dilation. No suspicious intrahepatic lesions on this single phase study. The gallbladder, spleen, adrenal glands are within normal limits. There is a 1.6 cm hypoattenuating lesion associated with the pancreatic body (series 2 image 148). The kidneys are mildly atrophic. There is no hydroureteronephrosis. The urinary bladder is trabeculated, likely secondary to chronic bladder outlet obstruction. There is mild prostatomegaly. There is is colonic diverticulosis without diverticulitis. The appendix is normal. Large and small bowel are normal in caliber. Stomach is decompressed. Duodenum is within normal limits. 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 There is no mesenteric, retroperitoneal or pelvic lymphadenopathy. The portal, splenic and superior mesenteric veins are patent. The abdominal aorta is normal in caliber with multifocal calcified atherosclerotic plaque. Very hepatic arterial anatomy is noted with direct takeoff of the proper hepatic artery from the aorta and accessory left hepatic artery supplied by the left gastric. Left total hip arthroplasty is noted. There is grade 1 anterolisthesis of L5 on S1 secondary to bilateral L5 pars defects. Diffuse idiopathic skeletal hyperostosis is noted in the thoracic spine. Median sternotomy changes are noted. Injection granulomas noted in the left buttock. No suspicious osseous lesions are identified. Procedure Note Landon Delgado MD / Hola Ardon MD - 09/14/2023 EXAMINATION: Computed tomography of the chest, abdomen and pelvis with intravenous contrast HISTORY: Evaluate for potential primary cancer in the setting of multifocal intraparenchymal hemorrhage. TECHNIQUE: Transaxial computed tomographic images of the chest, abdomen and pelvis were obtained with intravenous contrast according to the standard protocol after the uneventful administration of 144 mL Opti-Ray 350 intravenous contrast. COMPARISON: None FINDINGS: Chest: There is cardiomegaly. No pericardial effusion. Prosthetic aortic valve is noted. There are three-vessel coronary vascular calcifications. Thyroid gland and esophagus are within normal limits. There is no supraclavicular, mediastinal or axillary lymphadenopathy. Mild bilateral gynecomastia is noted. There is no pneumonic consolidation, pleural effusion or pneumothorax. Calcified pulmonary granulomas are noted in keeping with healed old granulomatous disease. No suspicious pulmonary nodules identified. Abdomen/Pelvis: There is no intrahepatic biliary ductal dilation. No suspicious intrahepatic lesions on this single phase study. The gallbladder, spleen, adrenal glands are within normal limits. There is a 1.6 cm hypoattenuating lesion associated with the pancreatic body (series 2 image 148). The kidneys are mildly atrophic. There is no hydroureteronephrosis. The urinary bladder is trabeculated, likely secondary to chronic bladder outlet obstruction. There is mild prostatomegaly. There is is colonic diverticulosis without diverticulitis. The appendix is normal. Large and small bowel are normal in caliber. Stomach is decompressed. Duodenum is within normal limits. 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 There is no mesenteric, retroperitoneal or pelvic lymphadenopathy. The portal, splenic and superior mesenteric veins are patent. The abdominal aorta is normal in caliber with multifocal calcified atherosclerotic plaque. Very hepatic arterial anatomy is noted with direct takeoff of the proper hepatic artery from the aorta and accessory left hepatic artery supplied by the left gastric. Left total hip arthroplasty is noted. There is grade 1 anterolisthesis of L5 on S1 secondary to bilateral L5 pars defects. Diffuse idiopathic skeletal hyperostosis is noted in the thoracic spine. Median sternotomy changes are noted. Injection granulomas noted in the left buttock. No suspicious osseous lesions are identified. IMPRESSION: 1. No definite primary malignancy identified in the chest, abdomen or pelvis that would explain the patient's intracranial hemorrhage. 2. 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 Recommend follow-up MRI/MRCP in 6 months. Recommend follow up of the Incidental pancreas lesion Additional Imaging In 6 Months with MRCP. Electronically signed by: Landon Delgado M.D. Selvin Arroyo MD IMG CT PROCEDURES Nicho ladi Result - Final from Last 3 Months or Most Recently Relevant to Health Maintenance Insurance [employer] MEDICARE MEDICARE Member Subscriber Plan / Payer (Ef fective 2013-Present) Name:Reyes Nara Adriano Member ID:[id number] Relation to Subscriber:Self Name:Nara Reyes Subscriber ID:[id number] Payer ID:[id number] Group ID:Not on file Type:MEDICARE TRADITIONAL Address: [place] [id number] [facility] MEDICARE AARP Advance Directives For more information, please contact: [phone] * Full Code (Latest Code Status on File) Date Activated Date Inactivated Comments 12/09/2023 8:45 PM 12/10/2023 5:56 PM * Full Code Date Activated Date Inactivated Comments 09/13/2023 4:26 PM 09/17/2023 5:46 PM Care Teams Rehab Physician Relationship Specialty Start Date End Date Marshall Ferrara MD [address] [place] [address] PCP - General 11/22/16 Luis Mcfadden MD [address] [place] [address] Consulting Physician Cardiology 09/26/23 Scott Lozano MD [address] [place] [address] Consulting Physician Cardiology 12/10/23
--- OUTSIDE RECORDS SUMMARY | 2024-11-24 10:47 | XMS_ITS | Clinical Summary ---
Author Organization [facility] [address] Address [address] [place] [address] Care Team Providers Care Recruiting Manager Name Role Phone Marshall Ferrara MD Primary Care Provider Luis Mcfadden MD Unavailable [phone] Scott Lozano MD Unavailable [phone] Allergies Active Allergy Reactions Criticality Noted Date Comments Apixaban Other (See comments) Low 10/06/2023 Pt states he cannot take blood thinners, he reported having a brain bleed while on them. Medications fish oil-dha-epa 1,200-144-216 mg capsuleIndicatio ns:Supplement Take 1 capsule by mouth slab inspector before breakfast Active colchicine (COLCRYS) 0.6 mg tabletIndication s:acute gouty arthritis Take 1 tablet (0.6 mg total) by mouth daily as needed (Gout Flare Up) 1 Active donepeziL (ARICEPT) 10 mg tabletIndication s:Unknown Take 1 tablet (10 mg total) by mouth slab inspector before breakfast 2 Active rosuvastatin (CRESTOR) 10 [...] 1 tablet/capsule (10 mEq total) by mouth slab inspector before breakfast 3 Active carvediloL (COREG) 25 mg tabletIndication s:Ventricular Rate Control in Atrial Fibrillation,hyp ertension Take 1 tablet (25 mg total) by mouth 2 (two) times a day with meals 4 026 Active levothyroxine sodium (Tirosint) 100 mcg capsuleIndicatio ns:hypothyroidis m Take 1 capsule (100 mcg total) by mouth slab inspector before breakfast 4 026 Active hydroCHLOROthiaz rochelle [...] November. Continue close follow up with primary passenger car inspector. Keep BP diary and take to appointment [...] up. Continue close follow up with primary passenger car inspector. Assessment & Plan (12/10/2023 11:53 AM CDT): [...] 0 09/05/2022 Body mass index 40.0-44.9, adult ([facility]) 09/05 Mixed hyperlipidemia 02/27/2022 Assessment & Plan (12/09/2023 10:26 PM CDT): - continue home Rosuvastatin 10mg daily Chronic heart failure with preserved ejection fr action 05/15/2020 LBBB (left bundle branch block) 09/27/2019 Coronary artery disease invo lving picayune coronary artery of picayune heart without angina pectoris 09/27/2019 ASD (atrial [...] Administration Dates Next Due Influenza, Unspecified 06/12/2023 Surgical History Surgery Date Site/Laterality Comments OTHER SURGICAL HISTORY severe aortic stenosis: OTHER SURGICAL HISTORY Bicuspid aortic valve: HIP ARTHROPLASTY hip replacement OTHER SURGICAL HISTORY 2012 Bovine AVR CARDIAC VALVE REPLACEMENT 04/2012 JOINT REPLACEMENT VASECTOMY 1974 Medical History Medical History Date Comments Hypertension Hypertension Adiposity obesity Hx Other Medical severe aortic s tenosis Hx Other Medical Bicuspid aortic valve CHF (congestive heart failure) (HCC) Chronic kidney disease Diastolic dysfunction Chronic renal failure Sleep apnea Benign prostatic hyperplasia Stroke (HCC) 09 15 2023 Family History Medical History Relation Name Comments Pulmonary fibrosis Father Hypertension Mother Lauren Unexplained Mother Lauren Mendez Hyperthermia Neg Hx Pseudochol deficiency Neg Hx Relation Name Status Comments Father (Age 74) Mother Lauren (Age 86) Social History Tobacco Use Types Packs/Day Years Used Date Smoking Tobacco: Former Cigarettes 1 10 0 08/25/1970 - 1980 Smokeless Tobacco: Never Alcohol Use Standard Drinks/Week Comments Yes 0 (1 standard drink = 0.6 oz pur e alcohol) [facility] Utilities Answer Date Recorded In the past 12 months has e electric, gas, oil, or water Data [employer] threatened to shut off services in your [...] often do you attend chur ch or voodoo services? Never 12/11/2023 Do you belong to any clubs o r organizations such as evangelical groups, unions, fraternal or athletic groups, or [...] on file Legal Sex Male 10:37 AM BUSINESS ANALYST PROJECT MANAGER Gender Identity Not on file Sexual Orientation Not on file Obstetrics History Last Filed Vital Signs Vital Sign Reading Time Taken Comments Blood Pressure 148/90 07/30/2024 8:13 AM BUSINESS ANALYST PROJECT MANAGER Pulse 75 07/30/2024 8:13 AM BUSINESS ANALYST PROJECT MANAGER Temperature 36.3 C (97.3 F) 06/07/2024 1:13 PM CDT Respiratory Rate 19 01/09/2024 10:10 AM CDT Oxygen Saturation 96% 07/30/2024 8:13 AM BUSINESS ANALYST PROJECT MANAGER Inhaled Oxygen Concentration - - Weight 124.7 kg (275 lb) 07/30/2024 8:13 AM BUSINESS ANALYST PROJECT MANAGER Height 177.8 cm (5' 10 ) 07/30/2024 8:13 AM BUSINESS ANALYST PROJECT MANAGER Body Mass Index 39.46 07/30/2024 8:13 AM BUSINESS ANALYST PROJECT MANAGER Plan of Treatment Health Maintenance Due Date Last Done Comments Hepatitis C Screening 1950 DTaP/Tdap/Td Vaccine (1 - Tdap) 1959 Hepatitis B Screening 1966 Well Visit 65+ 2013 Zoster Vaccine (2 of 3) 07/12/2014 05/17/2014 Pneumococcal vaccine 65+ (2 of 2 - PPSV23) 04/04/2016 02/08/2016 Depression Screening 09/13/2024 09/13/2023, 09/13/19 24 Fall Risk Assessment 01/08/2025 01/09/2024 Influenza Vaccine (Season Ended) 2025 06/12/2023, 07/02/2017, 05/28/2016, Additional history exists Abdominal Aortic Aneurysm (A AA) Screen Completed 09/13/2023 Medical Devices Implanted Type Area Safety Investigator/Cause Analyst Device Identifier Shelf Expiration Date Model / Serial / Lot [employer] Kristyn Occluder Cardiovascular 31mm Dlv Sys Watchman Flx Strl [id number] - [id number] Implanted:Qty: 1 on 12/09/2023 by Scott Lozano MD at [facility] Left Atrial Appendage Occluder Left: Atrial Appendage [employer] Kristyn 12/09/2025 [id number] / / [id number] Prosthetic Valve Prosthetic Valve N/A: Heart Description:aortic [employer] Device Clsr Perclose Prostyle Sut-Mediatd Closure-Repair Sys 77242-50 - [id number] Implanted:Qty: 1 on 12/09/2023 by Scott Lozano MD at [facility] Vascular Closure Device Right: Femoral Vein [employer] 07/24/2025 [id number] / / [id number] [employer] V[employer] Device Clsr Perclose Prostyle Sut-Mediatd Closure-Repair Sys 26304-90 - [id number] Implanted:Qty: 1 on 12/09/2023 by Scott Lozano MD at [facility] Vascular Closure Device Left: Femoral Vein [employer] 07/24/2025 [id number] / / [id number] [employer] V[employer] Device Clsr Perclose Prostyle Sut-Mediatd Closure-Repair Sys 88628-31 - [id number] Implanted:Qty: 1 on 12/09/2023 by Scott Lozano MD at [facility] Vascular Closure Device Left: Femoral Vein [employer] 07/24/2025 [id number] / / [id number] [employer] Kristyn Watchman Flx Procedure Device Wmflxperproc - [id number] Implanted:Qty: 1 on 12/09/2023 by Scott Lozano MD at [facility] Left: Atrial Appendage [employer] Kristyn [id number] / / Procedures Procedure Name Priority Date/Time Associated Diagnosis Comments CT CHEST ABDOMEN PELVIS W CONTRAST IP Routine 09/13/2023 8:40 PM BUSINESS ANALYST PROJECT MANAGER from Last 3 Months or Most Recently Relevant to Health Maintenance Results * CT Chest Abdomen Pelvis W Contrast (09/13/2023 8:40 PM BUSINESS ANALYST PROJECT MANAGER) Anatomical Region Laterality Modality Body N/A Computed Tomogra phy 09/14/2023 7:13 AM BUSINESS ANALYST PROJECT MANAGER Addenda Addendum by Hola Ardon MD on 06/15/2024 2:32 PM CDT Per phone call with Carly at pcp office, pcp is following patient for incidental finding locally. Jennifer HENDRICKS RN. Edited by: Jennifer Arreaga Electronically signed by: Hola Ardon M.D., MPH Impressions 09/14/2023 7:13 AM BUSINESS ANALYST PROJECT MANAGER 1. No definite primary malignancy identified in [...] Landon Delgado M.D. Narrative 09/14/2023 7:13 AM BUSINESS ANALYST PROJECT MANAGER EXAMINATION: Computed tomography of the chest, abdomen [...] Most Recently Relevant to Health Maintenance Insurance [facility] MEDICARE MEDICARE [facility] Member Subscriber Plan / Payer (Ef fective 2015-Present) Name:NARA REYES Relation to Subscriber:Self Name:Nara Reyes Payer ID:[id number] Group ID:[id number] Type:[facility] Address: [facility] [id number] [place] [address] [facility] Advance Directives For more information, please contact: [phone] * Full Code (Latest Code Status on File) Date Activated Date Inactivated Comments 12/09/2023 8:45 PM 12/10/2023 5:56 PM * Full Code Date Activated Date Inactivated Comments 09/13/2023 4:26 PM 09/17/2023 5:46 PM Care Teams Recruiting Manager Relationship Specialty Start Date End Date Marshall Ferrara MD [address] [place] [address] PCP - General 11/22/16 Luis Mcfadden MD [address] [place] [address] Consulting Physician Cardiology 09/26/23 Scott Lozano MD [address] [place] [address] Consulting Physician Cardiology 12/10/23
--- OUTSIDE RECORDS SUMMARY | 2024-11-24 10:47 | XMS_ITS | Clinical Summary ---
Author Organization [facility] Address [address] [place] [id number] Phone Care Team Providers Care Acetylene Torch Operator Name Role Phone Unavailable Primary Care Provider Unavailabl e Medications Medication Sig Dispensed Refills Start Date End Date Status levothyroxine (SYNTHROID, LEVOTHROID) 100 MCG tablet 1 tab/cap qday 02/27/2015 Active minoxidil (LONITEN) 10 MG tablet 1 tab/cap qday 02/26/2015 Active hydroCHLOROthiazide (HYDRODIURIL) 25 MG tablet 1 tab/cap qday 02/26/2015 Active spironolactone (ALDACTONE) 25 MG tablet 1 tab/cap qday 0 02/26/2015 Active lisinopril (PRINIVIL,ZESTRIL) 40 MG tablet 1 tab/cap qday 02/26/2015 Active aspirin (ST NELY) 81 MG EC tablet 1 tab/cap qday 02/26/2015 Active carvedilol (COREG) 25 MG tablet 1 tab/cap bid 0 02/26/2015 Active Active Problems Problem Noted Date Diagnosed Date Chronic kidney disease, stage 3 (moderate) 04/25 Hypertensive chronic kidney disease with stage 1 through stage 4 chronic kidney disease, or unspecified chronic kidney disease 04/25/2015 Other abnormal blood chemistry 02/27/2015 Overview (11/07/2018): Converted unresolved ICD9, potential mismatch. Chronic kidney disease 02/26/2015 Essential (primary) hypertension 02/26/2015 Aortic valve disorders 02/26/2015 Overview (11/07/2018): Converted unresolved ICD9, potential mismatch. Obesity 02/26/2015 Osteoarthrosis, unspecified whether generalized or localized, involving unspecified site 02/26/2015 Overview (11/07/2018): Converted unresolved ICD9, potential mismatch. Family History Medical History Relation Comments Hypertensive disorder Mother Malignant neoplastic disease Relative Kidney disease Neg Hx Kidney stone Neg Hx Relation Status Comments Mother Relative Social History Tobacco Use Types Packs/Day Years Used Date Smoking Tobacco: Never Assessed Sex and Gender Information Value Date Recorded Sex Assigned at Not on file Gender Identity Not on file Sexual Orientation Not on file Last Filed Vital Signs Vital Sign Reading Time Taken Comments Blood Pressure 132/72 02/27/2015 12:01 AM CDT Sitting, Right Pulse - - Temperature 37.3 C (99.2 F) 02/27/2015 12:01 AM CDT Respiratory Rate - - Oxygen Saturation - - Inhaled Oxygen Concentration - - Weight 136 kg (300 lb) 02/27/2015 12:01 AM CDT Height 172.7 cm (5' 8 ) 02/27/2015 12:0 1 AM CDT Body Mass Index 45.61 02/27/2015 12:01 AM CDT Plan of Treatment Not on file
--- OUTSIDE RECORDS SUMMARY | 2024-11-24 10:47 | XMS_ITS | Clinical Summary ---
Author Organization [facility] Address [address] [facility] [address] [place] [address] Phone Care Team Providers Care Law Examiner Name Role Phone Marshall Ferrara MD Primary Care Provider [phone] Social History Tobacco Use Types Packs/Day Years Used Date Smoking Tobacco: Never Assessed Sex and Gender Information Value Date Recorded Sex Assigned at Not on file Legal Sex Male 12:49 PM CDT Gender Identity Not on file Sexual Orientation Not on file Plan of Treatment Health Maintenance Due Date Last Done Comments Hepatitis C Virus (HCV) Screening 1950 TdaP Immunization 1950 Pneumococcal Immunization (5 0+ years) (1 of 1 - PCV) 1998 Zoster Immunization (1 of 2) 1998 Respiratory Syncytial Virus (RSV) Immunization (Adult) (1 - 1-dose 75+ series) 2023 Influenza Immunization (#1) 2024 SARS-COV-2 Immunization ( season) 2024 Colonoscopy High Risk Discontinued 03/06/2020 Colonoscopy Discontinued 03/06/2020 Colorectal Cancer Screening Discontinued Cologuard Discontinued Hepatitis B Immunization Aged Out No longer eligible based on patient's age to complete this topic Immunochemical Fecal Occult Blood Discontinued Meningococcal Immunization (ACWY) Aged Out No longer eligible based on patient's age to complete this topic Rotavirus Immunization Aged Out No lo nger eligible based on patient's age to complete this topic Procedures Procedure Name Priority Date/Time Associated Diagnosis Comments COLONOSCOPY Routine 03/06/2020 from Last 3 Months or Most Recently Relevant to Health Maintenance Results * HM COLONOSCOPY (03/06/2020) Jeremias Pritesh Moreland DO PROCEDURE/MINOR SURGICAL ORDERA BLES Final Result from Last 3 Months or Most Recently Relevant to Health Maintenance Insurance MEDICARE [facility] Care Teams Law Examiner Relationship Specialty Start Date End Date Marshall Ferrara MD [address] [place], [place] [id number] PCP - General Internal Medicine 03/10/20
[2024-11-24 11:04] LABS: Thyroid Stimulating Hormone 0.996 uIU/mL (0.465-4.680)
[2024-11-24 11:40] LABS: Folic Acid 8.4 ng/mL (2.76->20)
[2024-11-24 17:06] LABS: Hemoglobin A1C 5.2 % (<5.7)
== END 2024-11-24 09:49 | disposition home or self-care (01) ==
LOC: ANHLAB 09:50
PROVIDERS: PCP Internal Medicine; Visit Provider Internal Medicine
DX: E78.2 Mixed hyperlipidemia (principal); K86.89 Other specified diseases of pancreas; G47.33 Obstructive sleep apnea (adult) (pediatric); Z99.89 Dependence on other enabling machines and devices; Z79.899 Other long term (current) drug therapy; E03.9 Hypothyroidism, unspecified; I10 Essential (primary) hypertension; Z13.1 Encounter for screening for diabetes mellitus; E53.8 Deficiency of other specified B group vitamins
CPT/HCPCS: 36415; 80053; 80061; 81003; 82150; 82306; 82607; 82746; 83036; 83690; 84439; 84443; 85025

== ENCOUNTER 2025-08-01 09:25 | Outpatient (CLI) | payer MEDICARE, SELFPAY ==
[2025-08-01 18:58] LABS: Hematocrit 42.8 % (42.0-52.0); Hemoglobin 13.8 g/dL (14.0-18.0); Immature Granulocyte Percent A 0.4 % (0-0.5); Lymphocytes Absolute Auto 1.01 K/mm3 (0.9-3.2); Mean Corpuscular HGB Conc 32.2 g/dl (32-36); Mean Corpuscular Hemoglobin 30.9 pg (26-34); Mean Corpuscular Volume 95.7 fl (80-100); Nucleated Red Blood Cells Absolute Auto 0.000 K/mm3 (0.0-0.012); Nucleated Red Blood Cells Perc 0.0 % (0.0-0.2); Platelet Count Result 161 k/mm3 (150-375); Red Blood Count 4.47 M/mm3 (4.6-6.20); White Blood Count 7.8 K/mm3 (4.5-10.0)
[2025-08-01 19:00] LABS: Free T4 Free Thyroxine 1.67 ng/dL (0.78-2.19)
[2025-08-01 19:07] LABS: Hemoglobin A1C 5.3 % (<5.7)
[2025-08-01 20:19] LABS: Prostate Specific Antigen 1.7 ng/mL (< OR = 4.0)
[2025-08-01 20:24] LABS: Alanine Aminotransferase 20 U/L (6-50); Albumin Level 4.2 g/dL (3.5-5.1); Alkaline Phosphatase 82 U/L (38-126); Anion Gap 6 mmol/L (4-12); Aspartate Amino Transferase 36 U/L (17-59); Bilirubin,Total 1.0 mg/dL (0.2-1.3); Blood Urea Nitrogen 17 mg/dL (9-20); Calcium 9.4 mg/dL (8.4-10.2); Carbon Dioxide 32 mmol/L (22-30); Chloride 101 mmol/L (98-107); Cholesterol 104 mg/dL (0-200); Estimated Glomerular Filt Rate > 60; Glucose 90 mg/dL (65-110); HDL Direct 51 mg/dL; Potassium 3.5 mmol/L (3.4-5.0); Sodium 139 mmol/L (137-145); Total Protein 7.6 g/dL (6.3-8.2); Triglycerides 87 mg/dL (<150); Uric Acid 6.1 mg/dL (3.5-8.5)
[2025-08-01 21:00] LABS: Thyroid Stimulating Hormone 1.790 uIU/mL (0.465-4.680)
[2025-08-01 21:35] LABS: Vitamin B12 1000.0 pg/mL (239-931)
== END 2025-08-01 09:26 | disposition home or self-care (01) ==
LOC: ANHGOSHLAB 09:26
PROVIDERS: PCP Internal Medicine; Visit Provider Internal Medicine
DX: Z12.5 Encounter for screening for malignant neoplasm of prostate (principal); I10 Essential (primary) hypertension; E03.9 Hypothyroidism, unspecified; E53.8 Deficiency of other specified B group vitamins; E78.2 Mixed hyperlipidemia; E55.9 Vitamin D deficiency, unspecified; M10.9 Gout, unspecified; Z79.899 Other long term (current) drug therapy; Z13.1 Encounter for screening for diabetes mellitus
CPT/HCPCS: 36415; 80053; 80061; 82306; 82607; 82746; 83036; 84153; 84439; 84443; 84550; 85025; G0103